=== PATIENT | female | born 1985 ===

== ENCOUNTER 2020-07-28 06:32 | Emergency (ER) | payer MEDICAID, OTHER, SELFPAY ==
--- NOTE | ~2020-07-28 | CT_ITS ---
EXAMINATION: CT ABDOMEN AND PELVIS WITHOUT CONTRAST CLINICAL INFORMATION: Right flank pain. COMPARISON: None TECHNIQUE: Multidetector volumetric imaging was performed from the superior aspect of the liver through the pubic symphysis. Sagittal and coronal reformatted images were obtained on the technologist's workstation. This CT examination was performed using dose optimization techniques as appropriate, variously including the following: *Automated exposure control *Adjustment of mA and/or kV according to patient size (this includes techniques or standardized protocols for targeted exams where dose is matched to indication/reason for exam; i.e. extremities or head) *Use of iterative reconstruction technique DLP: 585 mGy-cm FINDINGS: LUNG BASES: The visualized lung bases are unremarkable. LIVER, GALLBLADDER, AND BILIARY TREE: The liver is normal in size, shape, and attenuation. No focal hepatic lesion or biliary ductal dilatation is present. The gallbladder has been removed. PANCREAS: Unremarkable. SPLEEN: Unremarkable. ADRENAL GLANDS: Unremarkable. KIDNEYS AND URETERS: There are bilateral renal stones. Largest stones measure 3 mm. No hydronephrosis, ureteral dilatation or ureteral stone. BLADDER: Not optimally distended and not well evaluated. GASTROINTESTINAL TRACT: The small and large bowel is unremarkable. The appendix is unremarkable. ABDOMINAL WALL: No significant hernia is appreciated. LYMPH NODES: Normal. VASCULAR: Unremarkable. PELVIC VISCERA: There may be a 2 cm right ovarian cyst. Uterus and adnexa are otherwise unremarkable. OSSEOUS STRUCTURES: Unremarkable. CT/CT abdomen pelvis wo con IMPRESSION: Bilateral renal stones. Question 2 cm right ovarian cyst. Post cholecystectomy.
[2020-07-28 06:43] VITALS: BP 108/67; PULSE 87; RESP 16; TEMP 36.9; O2SAT 98; BMI 26.9
--- NOTE | 2020-07-28 06:51 | ED.GENADULT ---
HPI - General Adult General Chief complaint: General Medical Stated complaint: back/abdominal pain Time Seen by Provider: 07/28/20 06:41 Source: patient Mode of arrival: ambulatory Limitations: no limitations History of Present Illness HPI narrative: Patient comes to the emergency room complaining of right-sided flank pain, started 2 weeks ago. Patient states sometimes she has dysuria, denies hematuria. Patient states that the pain is intermittent, lasting for about 30 minutes at the time, at this time she has no pain but she did have pain earlier this morning prior to arrival. Patient denies fever, no vomiting or diarrhea, no abdominal pain. Patient denies trauma or back injuries. Related Data Previous Rx's Medication Instructions Recorded ibuprofen 600 mg PO TID PRN #14 tab 07/28/20 nitrofurantoin monohyd/m-cryst 100 mg PO Q12H 7 Days #14 cap 07/28/20 [Macrobid] tramadol 50 mg PO Q8H PRN #7 tab 07/28/20 Allergies Allergy/AdvReac Type Severity Reaction Status Date / Time No Known Allergies Allergy Verified 07/28/20 06:49 Review of Systems Review of Systems: Constitutional : No Weight loss, No Fever, No Chills, No Night Sweats, No Fatigue, No Malaise ENT/Mouth : No Hearing loss, No Ear Pain, No Nasal Congestion, No Sinus Pain, No Hoarseness, No sore throat, No Rhinorrhea, No Swallowing Difficulty Eyes: No Eye Pain, No Swelling, No Redness, No Foreign Body, No Discharge, No Vision Changes Cardiovascular : No Chest Pain, No SOB, No Dyspnea on Exertion, No Orthopnea, No Edema, No Palpitations Respiratory : No Cough, No Sputum, No Wheezing, No Smoke Exposure, No Dyspnea Gastrointestinal : No Nausea, No Vomiting, No Diarrhea, No Constipation, No abdominal Pain, No Hematochezia, No Melena Genitourinary : no irregular bleeding, intermittent Dysuria, No Urinary Frequency, No Hematuria, No Urinary Incontinence, No Urgency, No Flank Pain, No Urinary Flow Changes, No Hesitancy, complaining of right-sided flank pain Musculoskeletal : No joint pain, No Myalgias, No Joint Swelling Skin : No Skin Lesions, No rash Neuro : No Weakness, No Numbness, No Paresthesias, No Loss of Consciousness, No Dizziness, No Headache Psych : No Anxiety/Panic, No Depression, No SI/HI/AH/VH, No Social Issues, Heme/Lymph: No Bruising, No Bleeding,No Lymphadenopathy Endocrine : No Polyuria, No Polydipsia, No Temperature Intolerance [facility] Past Medical History Surgical History History of cholecystectomy Social History Social History Advance Directives: No Advance Directives Information Provided: No Patient : No Physical Exam Vital Signs: Vital Signs: Last Vital Signs Temp 98.0 F 07/28/20 08:05 Pulse 70 07/28/20 08:05 Resp 17 07/28/20 08:05 BP 100/63 07/28/20 08:05 Pulse Ox 97 07/28/20 08:05 Body Mass Index 26.9 Appearance: Alert. Oriented X3. No acute distress. Eyes: Pupils equal, round and reactive to light. ENT: Pharynx normal. Neck: Normal inspection. Neck supple. No lymph nodes noted. No crepitus CVS: Normal heart rate and rhythm. Pulses normal. Normal S1 and S2 Respiratory: No respiratory distress. Breath sounds normal. No Wheezing. No rales Abdomen: Soft and nontender. No rigidity. No distention. Back: Mild CVA tenderness on the right side Skin: Skin warm and dry. Normal skin color. Normal skin turgor. Extremities: No lower extremity edema. No lower extremity edema. No Lacerations. No Rash Neuro: Oriented X 3. No motor deficit. No sensory deficit. Moving all extermities. No slurred speech. Course Course Course Narrative: I discussed the labs and imaging with the patient, it is possible that she did pass a renal stone causing her symptoms. At this time, patient feels better, states that she is not nauseous either. Patient agrees with plan, patient being discharged. Medical Decision Making Lab Data Result diagrams: 07/28/20 07:38 07/28/20 07:38 Labs: Lab Results 07/28/20 07/28/20 07/28/20 Range/Units 07:38 07:38 08:16 WBC 7.6 (4.8-10.8) X10*3/uL RBC 3.96 L (4.20-5.50) X10*6/uL Hgb 11.9 L (12.0-16.0) g/dl Hct 35.4 L (37-47) % MCV 89.4 (80-98) fL MCH 30.1 (27.0-33.0) pg MCHC 33.6 (31.0-35.0) g/dl RDW 12.1 (11.0-16.0) % Plt Count 246 (160-400) X10*3/uL MPV 10.5 (9.4-12.3) fL Immature Gran % (Auto) 0.3 (0.0-0.4) % Neut % (Auto) 56.4 (45-73) % Lymph % (Auto) 35.1 (20-40) % [place] % (Auto) 6.7 (2-11) % Eos % (Auto) 1.2 (0-4) % Baso % (Auto) 0.3 (0-2) % Lymph # (Auto) 2.7 (1.2-4.9) X10*3/uL [place] # (Auto) 0.5 (0.1-1.2) X10*3/uL Eos # (Auto) 0.1 (0.0-0.4) X10*3/uL Baso # (Auto) 0.0 (0.0-0.2) X10*3/uL Abs Immat Gran (auto) 0.02 (0.00-0.03) X10*3/uL Absolute Neuts (auto) 4.3 (2.0-8.3) X10*3/uL Absolute Nucleated RBC 0.000 (0.0-0.012) X10*3/uL Nucleated RBC % (auto) 0.0 (0.0-0.2) /100WBC Sodium 139 (135-145) mmol/L Potassium 4.0 (3.3-5.1) mmol/L Chloride 109 H (96-108) mmol/L Carbon Dioxide 23 (22-29) mmol/L Anion Gap 11 L (12-20) BUN 11 (9-16) mg/dL Creatinine 0.66 (0.5-1.4) mg/dL Estim Creat Clear Calc 109.6 Estimated GFR > 60 Random Glucose 88 (60-115) mg/dL Calcium 8.9 (8.4-10.2) mg/dL Total Bilirubin 0.4 (0.0-1.0) mg/dL Direct Bilirubin < 0.2 (0.0-0.5) mg/dL AST 16 (5-31) U/L ALT 14 (0-31) U/L Alkaline Phosphatase 68 (39-117) U/L Total Protein 6.8 (6.5-8.0) g/dL Albumin 3.7 (3.5-5.0) g/dL Urine Color Urine Appearance Urine pH (5.0-8.0) Ur Specific [place] (1.005-1.025) Urine Protein (NEG-TRACE) MG/DL Urine Glucose (UA) (NEG) MG/DL Urine Ketones (NEG) MG/DL Urine Blood (NEG) Urine Nitrite (NEG) Ur Leukocyte Esterase (NEG) Urine RBC (0) /HPF Urine WBC (0-4) /HPF Ur Squamous Epith Cells /LPF Urine Bacteria /LPF Urine Test NEGATIVE (NEGATIVE) Urine Opiates Screen (Not Detect) Ur Barbiturates Screen (Not Detect) Ur Phencyclidine Scrn (Not Detect) Ur Amphetamines Screen (Not Detect) U Benzodiazepines Scrn (Not Detect) Urine Cocaine Screen (Not Detect) U Marijuana (THC) Screen (Not Detect) 07/28/20 07/28/20 Range/Units 08:16 08:16 WBC (4.8-10.8) X10*3/uL RBC (4.20-5.50) X10*6/uL Hgb (12.0-16.0) g/dl Hct (37-47) % MCV (80-98) fL MCH (27.0-33.0) pg MCHC (31.0-35.0) g/dl RDW (11.0-16.0) % Plt Count (160-400) X10*3/uL MPV (9.4-12.3) fL Immature Gran % (Auto) (0.0-0.4) % Neut % (Auto) (45-73) % Lymph % (Auto) (20-40) % [place] % (Auto) (2-11) % Eos % (Auto) (0-4) % Baso % (Auto) (0-2) % Lymph # (Auto) (1.2-4.9) X10*3/uL [place] # (Auto) (0.1-1.2) X10*3/uL Eos # (Auto) (0.0-0.4) X10*3/uL Baso # (Auto) (0.0-0.2) X10*3/uL Abs Immat Gran (auto) (0.00-0.03) X10*3/uL Absolute Neuts (auto) (2.0-8.3) X10*3/uL Absolute Nucleated RBC (0.0-0.012) X10*3/uL Nucleated RBC % (auto) (0.0-0.2) /100WBC Sodium (135-145) mmol/L Potassium (3.3-5.1) mmol/L Chloride (96-108) mmol/L Carbon Dioxide (22-29) mmol/L Anion Gap (12-20) BUN (9-16) mg/dL Creatinine (0.5-1.4) mg/dL Estim Creat Clear Calc Estimated GFR Random Glucose (60-115) mg/dL Calcium (8.4-10.2) mg/dL Total Bilirubin (0.0-1.0) mg/dL Direct Bilirubin (0.0-0.5) mg/dL AST (5-31) U/L ALT (0-31) U/L Alkaline Phosphatase (39-117) U/L Total Protein (6.5-8.0) g/dL Albumin (3.5-5.0) g/dL Urine Color YELLOW Urine Appearance HAZY Urine pH 6.0 (5.0-8.0) Ur Specific [place] 1.025 (1.005-1.025) Urine Protein NEG (NEG-TRACE) MG/DL Urine Glucose (UA) NEG (NEG) MG/DL Urine Ketones NEG (NEG) MG/DL Urine Blood NEG (NEG) Urine Nitrite NEG (NEG) Ur Leukocyte Esterase 2+ H (NEG) Urine RBC 0 (0) /HPF Urine WBC 10-14 H (0-4) /HPF Ur Squamous Epith Cells 1+ /LPF Urine Bacteria 1+ /LPF Urine Test (NEGATIVE) Urine Opiates Screen Not Detected (Not Detect) Ur Barbiturates Screen Not Detected (Not Detect) Ur Phencyclidine Scrn Not Detected (Not Detect) Ur Amphetamines Screen Not Detected (Not Detect) U Benzodiazepines Scrn Not Detected (Not Detect) Urine Cocaine Screen Not Detected (Not Detect) U Marijuana (THC) Screen Not Detected (Not Detect) Imaging Data CT scan - abdomen: Radiologist's impression: FINDINGS: LUNG BASES: The visualized lung bases are unremarkable. LIVER, GALLBLADDER, AND BILIARY TREE: The liver is normal in size, shape, and attenuation. No focal hepatic lesion or biliary ductal dilatation is present. The gallbladder has been removed. PANCREAS: Unremarkable. SPLEEN: Unremarkable. ADRENAL GLANDS: Unremarkable. KIDNEYS AND URETERS: There are bilateral renal stones. Largest stones measure 3 mm. No hydronephrosis, ureteral dilatation or ureteral stone. BLADDER: Not optimally distended and not well evaluated. GASTROINTESTINAL TRACT: The small and large bowel is unremarkable. The appendix is unremarkable. ABDOMINAL WALL: No significant hernia is appreciated. LYMPH NODES: Normal. VASCULAR: Unremarkable. PELVIC VISCERA: There may be a 2 cm right ovarian cyst. Uterus and adnexa are otherwise unremarkable. OSSEOUS STRUCTURES: Unremarkable. CT/CT abdomen pelvis wo con IMPRESSION: Bilateral renal stones. Question 2 cm right ovarian cyst. Post cholecystectomy. Discharge Plan Discharge Clinical Impression: Calcium kidney stone, Flank pain UTI (urinary tract infection) Qualifiers: Urinary tract infection type: site unspecified Hematuria presence: without hematuria Qualified Code(s): N39.0 - Urinary tract infection, site not specified Patient Disposition: Home, Self-Care Instructions: Urinary Tract Infection in Women (ED) Additional Instructions: Please follow-up with your primary care physician tomorrow. If you have any worsening or new symptoms, please return to the emergency room or call 911 Prescriptions: New nitrofurantoin monohyd/m-cryst [Macrobid] 100 mg capsule 100 mg PO Q12H 7 Days Qty: 14 RF: 0 tramadol 50 mg tablet 50 mg PO Q8H PRN (Reason: pain) Qty: 7 RF: 0 ibuprofen 600 mg tablet 600 mg PO TID PRN (Reason: pain) Qty: 14 RF: 0
[2020-07-28 07:42] LABS: MANUAL DIFF FLAG NO
[2020-07-28 07:43] LABS: Basophils Percent Auto 0.3 % (0-2); Eosinophils Absolute Auto 0.1 X10*3/uL (0.0-0.4); Eosinophils Percent Auto 1.2 % (0-4); Hematocrit 35.4 % (37-47); Hemoglobin 11.9 g/dl (12.0-16.0); Imm Gran Abs Auto 0.02 X10*3/uL (0.00-0.03); Imm Gran Pct Auto 0.3 % (0.0-0.4); Lymphocytes Absolute Auto 2.7 X10*3/uL (1.2-4.9); Lymphocytes Percent Auto 35.1 % (20-40); Mean Corpuscular HGB Conc 33.6 g/dl (31.0-35.0); Mean Corpuscular Hemoglobin 30.1 pg (27.0-33.0); Mean Corpuscular Volume 89.4 fL (80-98); Mean Platelet Volume 10.5 fL (9.4-12.3); Monocytes Absolute Auto 0.5 X10*3/uL (0.1-1.2); Monocytes Percent Auto 6.7 % (2-11); Neutrophils Absolute Auto 4.3 X10*3/uL (2.0-8.3); Neutrophils Percent Auto 56.4 % (45-73); Platelet Count 246 X10*3/uL (160-400); Red Blood Count 3.96 X10*6/uL (4.20-5.50); Red Cell Distribution Width 12.1 % (11.0-16.0); White Blood Count 7.6 X10*3/uL (4.8-10.8)
[2020-07-28 08:05] VITALS: BP 100/63; PULSE 70; RESP 17; TEMP 36.7; O2SAT 97
[2020-07-28 08:12] LABS: Alanine Aminotransferase 14 U/L (0-31); Albumin Level 3.7 g/dL (3.5-5.0); Alkaline Phosphatase 68 U/L (39-117); Anion Gap 11 (12-20); Aspartate Amino Transferase 16 U/L (5-31); Bilirubin Direct < 0.2 mg/dL (0.0-0.5); Bilirubin Total 0.4 mg/dL (0.0-1.0); Blood Urea Nitrogen 11 mg/dL (9-16); Calcium 8.9 mg/dL (8.4-10.2); Carbon Dioxide 23 mmol/L (22-29); Chloride 109 mmol/L (96-108); Creatinine Clr Calc Pharmacy 109.6; Estimated Glomerular Filt Rate > 60; Glucose Random 88 mg/dL (60-115); Sodium 139 mmol/L (135-145); Total Protein 6.8 g/dL (6.5-8.0)
[2020-07-28 08:24] LABS: Glucose Urine UA NEG (NEG); Leukocyte Esterase Urine 2+ (NEG); Nitrite Urine NEG (NEG); Specific Gravity - Urine 1.025 (1.005-1.025); UACC Culture Trigger YES; Urine Blood NEG (NEG); Urine Ketones NEG (NEG); Urine Protein NEG (NEG-TRACE)
[2020-07-28 08:25] LABS: Appearance Urine HAZY; Color Urine YELLOW
[2020-07-28 08:31] LABS: UPreg QC Valid YES; Urine Pregnancy NEGATIVE (NEGATIVE)
[2020-07-28 08:37] LABS: Bacteria Urine 1+ /LPF; RBC Urine 0 /HPF (0); Squamous Epithelial Cell Urine 1+ /LPF
[2020-07-28 08:55] LABS: Amphetamine Screen Urine Not Detected (Not Detect); Barbiturates, Urine Not Detected (Not Detect); Benzodiazepines Screen Urine Not Detected (Not Detect); Cannabinoid Screen Urine Not Detected (Not Detect); Cocaine Screen Urine Not Detected (Not Detect); Opiate Screen Urine Not Detected (Not Detect); Phencyclidine Screen Urine Not Detected (Not Detect)
[2020-07-28 10:17] VITALS: BP 97/63; PULSE 80; RESP 17; TEMP 36.9; O2SAT 97
== END 2020-07-28 10:35 | disposition home or self-care (01) ==
PROVIDERS: Emergency Provider Emergency Medicine
DX: N39.0 Urinary tract infection, site not specified (principal); N20.0 Calculus of kidney
CPT/HCPCS: 36415; 74176; 80048; 80076; 80307; 81001; 81003; 81025; 85025; 87086; 99283; 99284

== ENCOUNTER 2021-04-24 15:08 | Outpatient (REF) | payer MEDICAID, OTHER, SELFPAY ==
--- NOTE | ~2021-04-24 | US_ITS ---
EXAMINATION: US PELVIS CLINICAL INFORMATION: Dyspareunia COMPARISON: CT abdomen pelvis 07/28/2020 TECHNIQUE: Ultrasound of the pelvis is performed using both transabdominal and transvaginal transducers along with Doppler. Transvaginal imaging is performed due to inadequate visualization transabdominally. FINDINGS: Uterus: The uterus is anteverted and measures 8.4 x 4.1 x 5.2 cm. Nabothian cysts are present in the cervix. The double wall endometrial thickness is 0.8 mm. The uterus is smooth in contour and has normal myometrial echogenicity. No visible fibroid. Adnexa: Both ovaries are visualized. There is normal color flow to the adnexa. Trace simple free fluid in the pelvis within physiologic limits of volume. Right ovary measures 2.8 x 1.0 x 2.2 cm. Right ovary is unremarkable. Left ovary measures 2.6 x 1.8 x 2.1 cm. Left ovary is remarkable for a physiologic involuting hemorrhagic corpus luteum. US/US pelvic and transvaginal IMPRESSION: Unremarkable pelvic ultrasound.
== END 2021-04-24 15:09 | disposition home or self-care (01) ==
LOC: HO.US 15:08
PROVIDERS: Visit Provider Advanced Practice Midwife
DX: N94.10 Unspecified dyspareunia (principal)
CPT/HCPCS: 76830; 76856

== ENCOUNTER 2022-08-09 03:02 | Emergency (ER) | payer MEDICAID, OTHER, SELFPAY ==
--- NOTE | ~2022-08-09 | CT_ITS ---
EXAMINATION: CT ABDOMEN AND PELVIS WITHOUT CONTRAST CLINICAL INFORMATION: Left flank pain COMPARISON: 07/28/2020 TECHNIQUE: Multidetector volumetric imaging was performed from the superior aspect of the liver through the pubic symphysis. Sagittal and coronal reformatted images were obtained on the technologist's workstation. This CT examination was performed using dose optimization techniques as appropriate, variously including the following: *Automated exposure control *Adjustment of mA and/or kV according to patient size (this includes techniques or standardized protocols for targeted exams where dose is matched to indication/reason for exam; i.e. extremities or head) *Use of iterative reconstruction technique DLP: 525 mGy-cm FINDINGS: LUNG BASES: The visualized lung bases are unremarkable. LIVER, GALLBLADDER, AND BILIARY TREE: The liver is normal in size, shape, and attenuation. No focal hepatic lesion or biliary ductal dilatation is identified on this noncontrast exam. Patient is status post cholecystectomy. PANCREAS: Unremarkable. SPLEEN: Unremarkable. ADRENAL GLANDS: Unremarkable. KIDNEYS AND URETERS: No hydronephrosis or obstructing calculus bilaterally. There are several scattered calculi within each kidney measuring up to 4 mm in size. BLADDER: Partially distended without wall thickening. There is a dependent 3 mm calculus in the bladder, suspicious for a recently passed stone. GASTROINTESTINAL TRACT: No evidence of bowel obstruction or significant wall thickening. The appendix is unremarkable. No free air is seen. ABDOMINAL WALL: No significant hernia is appreciated. LYMPH NODES: Normal. VASCULAR: Unremarkable. PELVIC VISCERA: Unremarkable. Trace nonspecific pelvic free fluid. OSSEOUS STRUCTURES: Unremarkable. CT/CT abdomen pelvis wo IV con IMPRESSION: 1. Dependent 3 mm calculus in the bladder, suspicious for a recently passed stone. No hydronephrosis. 2. Several scattered bilateral renal calculi. 3. Trace nonspecific pelvic free fluid, which may be physiologic.
[2022-08-09 03:05] VITALS: BP 113/75; PULSE 83; RESP 20; TEMP 36.3; O2SAT 99; BMI 25.7
--- NOTE | 2022-08-09 03:34 | ED_ITS ---
HPI - Female Genitourinary General Chief complaint: Urogenital-Female Stated complaint: Flank pain Time Seen by Provider: 08/09/22 03:27 Source: patient Mode of arrival: ambulatory Limitations: no limitations History of Present Illness HPI Narrative: Patient comes to the emergency room complaining of 2 hours of severe left-sided flank pain. Patient states that since yesterday she has noted that she has pain with urination. Patient denies fever chills. Patient has never passed kidney stones to her knowledge. Patient had a CT scan done couple of years ago, she had stones in the kidneys but never ureterolithiasis. Patient complaining of nausea, no vomiting or diarrhea. No fever chills, no abdominal pain. Related Data Previous Rx's Medication Instructions Recorded ibuprofen 600 mg tablet 600 mg PO TID PRN pain #14 tabs 07/28/20 nitrofurantoin 100 mg PO Q12H 7 days #14 caps 07/28/20 monohydrate/macrocrystals 100 mg capsule (Macrobid) tramadol 50 mg tablet 50 mg PO Q8H PRN pain #7 tabs 07/28/20 ketorolac 10 mg tablet 10 mg PO TID PRN pain #10 tabs 08/09/22 levofloxacin 500 mg tablet 500 mg PO DAILY #10 tabs 08/09/22 tamsulosin 0.4 mg capsule (Flomax) 0.4 mg PO BEDTIME #10 caps 08/09/22 Allergies Allergy/AdvReac Type Severity Reaction Status Date / Time No Known Allergies Allergy Verified 07/28/20 06:49 Review of Systems Review of Systems: Constitutional : No Weight loss, No Fever, No Chills, No Night Sweats, No Fatigue, No Malaise ENT/Mouth : No Hearing loss, No Ear Pain, No Nasal Congestion, No Sinus Pain, No Hoarseness, No sore throat, No Rhinorrhea, No Swallowing Difficulty Eyes: No Eye Pain, No Swelling, No Redness, No Foreign Body, No Discharge, No Vision Changes Cardiovascular : No Chest Pain, No SOB, No Dyspnea on Exertion, No Orthopnea, No Edema, No Palpitations Respiratory : No Cough, No Sputum, No Wheezing, No Smoke Exposure, No Dyspnea Gastrointestinal : No Nausea, No Vomiting, No Diarrhea, No Constipation, No abdominal Pain, No Hematochezia, No Melena Genitourinary : no irregular bleeding, complaining of Dysuria, No Urinary Frequency, No Hematuria, No Urinary Incontinence, No Urgency, complaining of left-sided Flank Pain, No Urinary Flow Changes, No Hesitancy Musculoskeletal : No joint pain, No Myalgias, No Joint Swelling Skin : No Skin Lesions, No rash Neuro : No Weakness, No Numbness, No Paresthesias, No Loss of Consciousness, No Dizziness, No Headache Psych : No Anxiety/Panic, No Depression, No SI/HI/AH/VH, No Social Issues, Heme/Lymph: No Bruising, No Bleeding,No Lymphadenopathy Endocrine : No Polyuria, No Polydipsia, No Temperature Intolerance [facility] Past Medical History Surgical History History of cholecystectomy Social History Social History Smoked in Last 30 Days: No Use of substances other than those prescribed or required for medical reasons: No Advance Directives: No Advance Directives Information Provided: No Patient : No Physical Exam Vital Signs: Vital Signs: Last Vital Signs Temp 97.3 F 08/09/22 03:05 Pulse 83 08/09/22 03:05 Resp 20 08/09/22 03:05 BP 113/75 08/09/22 03:05 Pulse Ox 99 08/09/22 03:05 O2 Del Method Room Air 08/09/22 03:05 BMI result Body Mass Index 25.7 Const: Other: Appearance: Alert. Oriented X3. Seems uncomfortable Eyes: Pupils equal, round and reactive to light. ENT: Pharynx normal. Neck: Normal inspection. Neck supple. No lymph nodes noted. No crepitus CVS: Normal heart rate and rhythm. Pulses normal. Normal S1 and S2 Respiratory: No respiratory distress. Breath sounds normal. No Wheezing. No rales Abdomen: Soft and nontender. No rigidity. No distention. Positive CVA tenderness on the left Skin: Skin warm and dry. Normal skin color. Normal skin turgor. Extremities: No lower extremity edema. No Lacerations. No Rash Neuro: Oriented X 3. No motor deficit. No sensory deficit. Moving all extremities. No slurred speech. CN 2 through 12 grossly intact Psych: calm, cooperative, normal affect Course Course Course Narrative: It is possible that patient is passing kidney stones or has pyelonephritis. Since it is unilateral, more likely causes kidney stones. -patient has no fever, normal blood pressure, normal temperature, sepsis not suspected. -All labs pending -CT scan of abdomen pelvis pending Medications Administered Discontinued Medications Generic Name Dose Route Start Last Admin Trade Name Michael PRN Reason Stop Dose Admin Ketorolac Tromethamine 30 mg 08/09/22 03:33 08/09/22 03:44 Ketorolac Tromethamine 30 Mg/Ml Vial IVPUSH 08/09/22 03:34 30 mg ONCE ONE Administration Medical Decision Making Medical Decision Making [facility] Narrative: -my interpretation of urinalysis: Positive for UTI -interpretation of CT scan of abdomen and pelvis: There is a stone present in the bladder -patient has an infected kidney stone. I am considering to admit the patient. -patient feeling much better, no fever or chills, vitals stable. Pain is well c ontrolled -patient was given the 1st dose of levofloxacin in the emergency room. -patient will be going home, she was instructed to follow-up with urology. Differential Diagnosis Differential Diagnoses: The differential diagnosis associated with the presentation includes (Renal colic, renal infarct, ureterolithiasis, pyelonephritis, UTI) Admission/Observation Consideration of admission/observation: Escalation of care including admission/observation considered Lab Data [facility] Lab Attestation statement: I reviewed the patient's lab results. 08/09/22 03:40 08/09/22 03:40 Labs: Lab Results 08/09/22 08/09/22 08/09/22 Range/Units 03:40 03:40 03:40 WBC 11.9 H (4.8-10.8) X10*3/uL RBC 4.27 (4.20-5.50) X10*6/uL Hgb 12.8 (12.0-16.0) g/dl Hct 37.8 (37.0-47.0) % MCV 88.5 (80.0-98.0) fL MCH 30.0 (27.0-33.0) pg MCHC 33.9 (31.0-35.0) g/dl RDW 12.1 (11.0-16.0) % Plt Count 263 (160-400) X10*3/uL MPV 10.2 (9.4-12.3) fL Immature Gran % (Auto) 0.3 (0.0-0.4) % Neut % (Auto) 57.7 (45-73) % Lymph % (Auto) 34.2 (20-40) % [place] % (Auto) 6.7 (2-11) % Eos % (Auto) 0.8 (0-4) % Baso % (Auto) 0.3 (0-2) % Lymph # (Auto) 4.1 (1.2-4.9) X10*3/uL [place] # (Auto) 0.8 (0.1-1.2) X10*3/uL Eos # (Auto) 0.1 (0.0-0.4) X10*3/uL Baso # (Auto) 0.0 (0.0-0.2) X10*3/uL Abs Immat Gran (auto) 0.03 (0.00-0.03) X10*3/uL Absolute Neuts (auto) 6.9 (2.0-8.3) x10*3/uL Absolute Nucleated RBC 0.000 (0.0-0.012) X10*3/uL Nucleated RBC % (auto) 0.0 (0.0-0.2) /100WBC Sodium 139 (135-145) mmol/L Potassium 3.6 (3.3-5.1) mmol/L Chloride 107 (96-108) mmol/L Carbon Dioxide 23 (22-29) mmol/L Anion Gap 13 (12-20) BUN 11 (9-16) mg/dL Creatinine 0.60 (0.5-1.4) mg/dL Estim Creat Clear Calc 120.4 Estimated GFR > 60 Random Glucose 97 (60-115) mg/dL Calcium 9.3 (8.4-10.2) mg/dL Total Bilirubin 0.6 (0.0-1.0) mg/dL AST 14 (5-31) U/L ALT 11 (0-31) U/L Alkaline Phosphatase 87 (39-117) U/L Total Protein 7.5 (6.5-8.0) g/dL Albumin 3.9 (3.5-5.0) g/dL Beta HCG, Quant < 2 mIU/mL Urine Color Urine Appearance Urine pH (5.0-9.0) Ur Specific [place] (1.005-1.025) Urine Protein (Neg-Trace) mg/dL Urine Glucose (UA) (Negative) mg/dL Urine Ketones (Negative) mg/dL Urine Blood (Negative) Urine Nitrite (Negative) Ur Leukocyte Esterase (Negative) Urine RBC (0-2) /HPF Urine WBC (0-5) /HPF Ur Squamous Epith Cells (0-2) /HPF Urine Bacteria (None Seen) Hyaline Casts (0-2) /LPF 08/09/22 Range/Units 03:40 WBC (4.8-10.8) X10*3/uL RBC (4.20-5.50) X10*6/uL Hgb (12.0-16.0) g/dl Hct (37.0-47.0) % MCV (80.0-98.0) fL MCH (27.0-33.0) pg MCHC (31.0-35.0) g/dl RDW (11.0-16.0) % Plt Count (160-400) X10*3/uL MPV (9.4-12.3) fL Immature Gran % (Auto) (0.0-0.4) % Neut % (Auto) (45-73) % Lymph % (Auto) (20-40) % [place] % (Auto) (2-11) % Eos % (Auto) (0-4) % Baso % (Auto) (0-2) % Lymph # (Auto) (1.2-4.9) X10*3/uL [place] # (Auto) (0.1-1.2) X10*3/uL Eos # (Auto) (0.0-0.4) X10*3/uL Baso # (Auto) (0.0-0.2) X10*3/uL Abs Immat Gran (auto) (0.00-0.03) X10*3/uL Absolute Neuts (auto) (2.0-8.3) x10*3/uL Absolute Nucleated RBC (0.0-0.012) X10*3/uL Nucleated RBC % (auto) (0.0-0.2) /100WBC Sodium (135-145) mmol/L Potassium (3.3-5.1) mmol/L Chloride (96-108) mmol/L Carbon Dioxide (22-29) mmol/L Anion Gap (12-20) BUN (9-16) mg/dL Creatinine (0.5-1.4) mg/dL Estim Creat Clear Calc Estimated GFR Random Glucose (60-115) mg/dL Calcium (8.4-10.2) mg/dL Total Bilirubin (0.0-1.0) mg/dL AST (5-31) U/L ALT (0-31) U/L Alkaline Phosphatase (39-117) U/L Total Protein (6.5-8.0) g/dL Albumin (3.5-5.0) g/dL Beta HCG, Quant mIU/mL Urine Color Yellow Urine Appearance Clear Urine pH 6.0 (5.0-9.0) Ur Specific [place] 1.015 (1.005-1.025) Urine Protein Negative (Neg-Trace) mg/dL Urine Glucose (UA) Negative (Negative) mg/dL Urine Ketones Negative (Negative) mg/dL Urine Blood Small (1+) H (Negative) Urine Nitrite Negative (Negative) Ur Leukocyte Esterase Trace H (Negative) Urine RBC 11-20 H (0-2) /HPF Urine WBC 0-5 (0-5) /HPF Ur Squamous Epith Cells 3-5 (0-2) /HPF Urine Bacteria None Seen (None Seen) Hyaline Casts 0-2 (0-2) /LPF Radiology Impression Discussion of test interpretation with radiology: I have reviewed the radiologist's reading. Radiologist Impression: FINDINGS: LUNG BASES: The visualized lung bases are unremarkable.? LIVER, GALLBLADDER, AND BILIARY TREE: The liver is normal in size, shape, and attenuation. No focal hepatic lesion or biliary ductal dilatation is identified on this noncontrast exam. Patient is status post cholecystectomy. PANCREAS: Unremarkable.? SPLEEN: Unremarkable.? ADRENAL GLANDS: Unremarkable.? KIDNEYS AND URETERS: No hydronephrosis or obstructing calculus bilaterally. There are several scattered calculi within each kidney measuring up to 4 mm in size. BLADDER: Partially distended without wall thickening. There is a dependent 3 mm calculus in the bladder, suspicious for a recently passed stone. GASTROINTESTINAL TRACT: No evidence of bowel obstruction or significant wall thickening. The appendix is unremarkable. No free air is seen.? ABDOMINAL WALL: No significant hernia is appreciated.? LYMPH NODES: Normal. VASCULAR: Unremarkable. PELVIC VISCERA: Unremarkable. Trace nonspecific pelvic free fluid. OSSEOUS STRUCTURES: Unremarkable.? CT/CT abdomen pelvis wo IV con IMPRESSION: 1.? Dependent 3 mm calculus in the bladder, suspicious for a recently passed stone. No hydronephrosis. 2.? Several scattered bilateral renal calculi. 3.? Trace nonspecific pelvic free fluid, which may be physiologic. ? Prescription Management I considered prescription management with: Pain Medication (I consider prescribing narcotics. However, patient had good results with ketorolac) Discharge Plan Discharge Clinical Impression: Urinary tract infection, Kidney stone Patient Disposition: Home, Self-Care Instructions: Kidney Stones (ED), Urinary Tract Infection in Women (ED) Additional Instructions: Please follow-up with your primary care physician tomorrow. If you have any worsening or new symptoms, please return to the emergency room or call 911 Prescriptions: New levofloxacin 500 mg tablet 500 mg PO DAILY Qty: 10 0RF ketorolac 10 mg tablet 10 mg PO TID PRN (Reason: pain) Qty: 10 0RF Rx Instructions: Do not use with aleve, ibuprofen, only Tylenol if needed tamsulosin [Flomax] 0.4 mg capsule 0.4 mg PO BEDTIME Qty: 10 0RF No Action nitrofurantoin monohyd/m-cryst [Macrobid] 100 mg capsule 100 mg PO Q12H 7 Days Qty: 14 0RF Rx Instructions: must administer with a meal/food tramadol 50 mg tablet 50 mg PO Q8H PRN (Reason: pain) Qty: 7 0RF ibuprofen 600 mg tablet 600 mg PO TID PRN (Reason: pain) Qty: 14 0RF Referrals: Petey Juarez MD [Physician] - 08/16/22
[2022-08-09] MEDS: Ketorolac Tromethamine 30 MG/ML VIAL IVPUSH (03:44)
[2022-08-09 03:46] LABS: Basophils Percent Auto 0.3 % (0-2); Eosinophils Absolute Auto 0.1 X10*3/uL (0.0-0.4); Eosinophils Percent Auto 0.8 % (0-4); Hematocrit 37.8 % (37.0-47.0); Hemoglobin 12.8 g/dl (12.0-16.0); Imm Gran Abs Auto 0.03 X10*3/uL (0.00-0.03); Imm Gran Pct Auto 0.3 % (0.0-0.4); Lymphocytes Absolute Auto 4.1 X10*3/uL (1.2-4.9); Lymphocytes Percent Auto 34.2 % (20-40); MANUAL DIFF FLAG NO; Mean Corpuscular HGB Conc 33.9 g/dl (31.0-35.0); Mean Corpuscular Volume 88.5 fL (80.0-98.0); Mean Platelet Volume 10.2 fL (9.4-12.3); Monocytes Absolute Auto 0.8 X10*3/uL (0.1-1.2); Monocytes Percent Auto 6.7 % (2-11); Neutrophils Absolute Auto 6.9 x10*3/uL (2.0-8.3); Neutrophils Percent Auto 57.7 % (45-73); Platelet Count 263 X10*3/uL (160-400); Red Blood Count 4.27 X10*6/uL (4.20-5.50); Red Cell Distribution Width 12.1 % (11.0-16.0); White Blood Count 11.9 X10*3/uL (4.8-10.8)
[2022-08-09 03:48] LABS: Appearance Urine Clear; Color Urine Yellow; Glucose Urine UA Negative (Negative); Leukocyte Esterase Urine Trace (Negative); Nitrite Urine Negative (Negative); Specific Gravity - Urine 1.015 (1.005-1.025); UMIC TRIGGER UACC YES; Urine Blood Small (1+) (Negative); Urine Ketones Negative (Negative); Urine Protein Negative (Neg-Trace)
[2022-08-09 03:53] LABS: Bacteria Urine None Seen (None Seen); Hyaline Casts Urine 0-2 /LPF (0-2); WBC Urine 0-5 /HPF (0-5)
[2022-08-09 04:03] LABS: Alanine Aminotransferase 11 U/L (0-31); Albumin Level 3.9 g/dL (3.5-5.0); Alkaline Phosphatase 87 U/L (39-117); Anion Gap 13 (12-20); Aspartate Amino Transferase 14 U/L (5-31); Bilirubin Total 0.6 mg/dL (0.0-1.0); Blood Urea Nitrogen 11 mg/dL (9-16); Calcium 9.3 mg/dL (8.4-10.2); Carbon Dioxide 23 mmol/L (22-29); Chloride 107 mmol/L (96-108); Creatinine Clr Calc Pharmacy 120.4; Estimated Glomerular Filt Rate > 60; Glucose Random 97 mg/dL (60-115); Potassium 3.6 mmol/L (3.3-5.1); Sodium 139 mmol/L (135-145); Total Protein 7.5 g/dL (6.5-8.0)
[2022-08-09 04:10] LABS: HCG Quantitative < 2 mIU/mL
[2022-08-09 05:31] VITALS: BP 99/59; PULSE 68; RESP 12; TEMP 36.5; O2SAT 97
[2022-08-09] MEDS: levoFLOXacin 500 MG TABLET PO (05:32)
== END 2022-08-09 05:36 | disposition home or self-care (01) ==
PROVIDERS: Emergency Provider Emergency Medicine
DX: N39.0 Urinary tract infection, site not specified (principal); N20.0 Calculus of kidney
CPT/HCPCS: 36415; 74176; 80053; 81001; 84702; 85025; 96374; 99284; 99285; J1885

== ENCOUNTER 2022-09-24 16:18 | Outpatient (REF) | payer MEDICAID, OTHER, SELFPAY ==
[2022-09-24 17:22] LABS: MANUAL DIFF FLAG NO
[2022-09-24 17:29] LABS: Basophils Percent Auto 0.4 % (0-2); Eosinophils Absolute Auto 0.2 X10*3/uL (0.0-0.4); Eosinophils Percent Auto 1.9 % (0-4); Hematocrit 38.8 % (37.0-47.0); Hemoglobin 12.9 g/dl (12.0-16.0); Imm Gran Abs Auto 0.03 X10*3/uL (0.00-0.03); Imm Gran Pct Auto 0.3 % (0.0-0.4); Lymphocytes Absolute Auto 3.2 X10*3/uL (1.2-4.9); Lymphocytes Percent Auto 35.9 % (20-40); Mean Corpuscular HGB Conc 33.2 g/dl (31.0-35.0); Mean Corpuscular Hemoglobin 30.1 pg (27.0-33.0); Mean Corpuscular Volume 90.4 fL (80.0-98.0); Mean Platelet Volume 10.5 fL (9.4-12.3); Monocytes Absolute Auto 0.6 X10*3/uL (0.1-1.2); Monocytes Percent Auto 6.5 % (2-11); Neutrophils Absolute Auto 4.9 x10*3/uL (2.0-8.3); Platelet Count 264 X10*3/uL (160-400); Red Blood Count 4.29 X10*6/uL (4.20-5.50); Red Cell Distribution Width 12.2 % (11.0-16.0); White Blood Count 8.9 X10*3/uL (4.8-10.8)
[2022-09-24 18:13] LABS: TSH reflex Free T4 0.84 uIU/mL (0.32-4.0)
[2022-09-24 18:18] LABS: Vitamin B12 455 pg/mL (200-900)
== END 2022-09-24 16:19 | disposition home or self-care (01) ==
LOC: HO.HHCL 16:18
PROVIDERS: Visit Provider Nurse Practitioner Primary Care
DX: R20.0 Anesthesia of skin (principal); R20.2 Paresthesia of skin
CPT/HCPCS: 36415; 82607; 84443; 85025

== ENCOUNTER 2022-09-26 08:34 | Outpatient (REF) | payer MEDICAID, OTHER, SELFPAY ==
--- NOTE | ~2022-09-26 | XR_ITS ---
EXAMINATION: XR cervical spine 3V CLINICAL INFORMATION: Pain COMPARISON: None TECHNIQUE: 3 views of the cervical spine were obtained. FINDINGS: The cervical spine is visualized to the level of C7-T1 on the lateral view. Vertebral body alignment is maintained. Vertebral body heights are maintained. Disc space heights are maintained. Lateral masses of C1 are well aligned on C2.. The dens is largely obscured by patient positioning. No prevertebral soft tissue swelling. XR/XR cervical spine 3V IMPRESSION: The dens is largely obscured by patient positioning. Otherwise, unremarkable cervical spine radiographs.
== END 2022-09-26 08:35 | disposition home or self-care (01) ==
LOC: HO.HHCX 08:34
PROVIDERS: Visit Provider Nurse Practitioner Primary Care
DX: M54.2 Cervicalgia (principal); G89.29 Other chronic pain
CPT/HCPCS: 72040

== ENCOUNTER 2023-05-01 09:25 | Outpatient (REF) | payer MEDICAID, OTHER, SELFPAY ==
--- NOTE | ~2023-05-01 | US_ITS ---
EXAMINATION: US RETROPERITONEAL COMPLETE (RENAL) CLINICAL INFORMATION: Renal calculus. COMPARISON: CT abdomen and pelvis 08/09/2022. TECHNIQUE: Real-time imaging of the kidneys and bladder. FINDINGS: RIGHT KIDNEY: 11.4 x 5.3 x 5.5 cm (SAG x AP x TRV). The kidney is normal in size, contour, and echogenicity. Renal cortical thickness is normal. No focal parenchymal lesions or hydronephrosis. At the interpolar aspect, 4 mm and 3 mm nonobstructing calculi are seen, with twinkle artifact. At the lower pole, a 3 mm nonobstructing calculus is seen, with twinkle artifact. LEFT KIDNEY: 10.7 x 6.0 x 4.8 cm (SAG x AP x TRV). The kidney is normal in size, contour, and echogenicity. Renal cortical thickness is normal. No focal parenchymal lesions or hydronephrosis. At the interpolar aspect, a 3 mm nonobstructing calculus is seen, with twinkle artifact. At the lower pole, a 3 mm nonobstructing calculus is seen, with twinkle artifact. BLADDER: Well distended and normal. Bilateral ureteral jets are demonstrated. Prevoid bladder volume is 474 mL. Postvoid bladder volume is 17 mL. US/US retroperitoneal comp IMPRESSION: There are nonobstructing bilateral renal calculi. No hydronephrosis is seen. No solid lesion or complex cyst is noted.
== END 2023-05-01 09:26 | disposition home or self-care (01) ==
LOC: HO.US 09:25
PROVIDERS: PCP Nurse Practitioner Primary Care; Visit Provider Urology
DX: N20.0 Calculus of kidney (principal)
CPT/HCPCS: 76770

== ENCOUNTER 2023-06-09 14:57 | Emergency (ER) | payer MEDICAID, OTHER, SELFPAY ==
--- NOTE | 2023-06-09 15:15 | ED_ITS ---
[facility] - General Adult General Chief complaint: Abdominal Pain Stated complaint: Lower abd pain Time Seen by Provider: 06/09/23 20:02 Source: patient Mode of arrival: ambulatory History of Present Illness HPI narrative: 37-year-old female with presentation for 3 weeks of bilateral pelvic discomfort without urinary symptoms and no fever, chills, nausea, vomiting. Patient also has complaints about right thumb discomfort and states that approximately 3 years ago she had a small piece of glass that went into the palmar aspect of her right thumb and she was able to successfully remove it but now states that it hurts when she flexes her thumb. Related Data Previous Rx's ?Medication ?Instructions ?Recorded ibuprofen 600 mg tablet 600 mg PO TID PRN pain #14 tabs 07/28/20 nitrofurantoin 100 mg PO Q12H 7 days #14 caps 07/28/20 monohydrate/macrocrystals 100 mg capsule (Macrobid) tramadol 50 mg tablet 50 mg PO Q8H PRN pain #7 tabs 07/28/20 ketorolac 10 mg tablet 10 mg PO TID PRN pain #10 tabs 08/09/22 levofloxacin 500 mg tablet 500 mg PO DAILY #10 tabs 08/09/22 tamsulosin 0.4 mg capsule (Flomax) 0.4 mg PO BEDTIME #10 caps 08/09/22 Allergies Allergy/AdvReac Type Severity Reaction Status Date / Time No Known Allergies Allergy Verified 06/09/23 15:21 Review of Systems 2 Review of Systems: Pertinent positives and negatives as stated in [facility] Past Medical History Source: nursing notes reviewed Surgical History History of cholecystectomy Social History Social History Smoked in Last 30 Days: No Use of substances other than those prescribed or required for medical reasons: No Advance Directives: No Advance Directives Information Provided: No Do you have a plan to hurt others: No Plan Patient : No Physical Exam ED Vital Signs: Vital Signs - 24 hr 06/09/23 15:16 06/09/23 19:49 Temperature 97.2 F 98.2 F Pulse Rate 84 66 Respiratory Rate 16 16 Blood Pressure 118/74 114/64 Pulse Oximetry 98 98 Oxygen Delivery Method Room Air Room Air BMI result Body Mass Index 26.2 VITAL SIGNS: Reviewed. GENERAL: Well developed, well nourished, in no acute distress. HEAD: Normocephalic/atraumatic EYES: PERRLA, EOMI EARS: Ext canals without abnormality NOSE: Nares patent bilateral OROPHARYNX: no oral lesions noted, posterior pharynx clear NECK: Supple, no adenopathy LUNGS: Normal breath sounds. No adventitious sounds or accessory muscle use. SpO2<98> CARDIOVASCULAR: Regular rate and rhythm without noted murmurs ABDOMEN: Soft, non-tender, non-distended with bowel sounds. MUSCULOSKELETAL: No tenderness, deformities, or effusions noted on gross inspection. EXTREMITIES: No cyanosis, clubbing or edema. RIGHT THUMB: Full range of motion noted, on palpation no foreign body appreciated, sensation is completely intact with good capillary refill, no erythema or induration. SKIN: Inspection of the skin reveals no rashes NEUROLOGIC: Alert and oriented x 4. Strength and sensation to light touch were grossly intact x 4. Course Course Course Narrative: This is an RME: Additional HPI, ROS, PE not included below will be deferred to primary provider. 37 yo f presents with left lower quadrant pain for 3 weeks. States painful urination in the morning. Pt reports more painful periods recently. Denies cp, sob, nausea, vomiting, diarrhea. Medical Decision Making Medical Decision Making [facility] Narrative: 37-year-old female with history and clinical presentation, history sounds as though patient is drawing a correlation between placement of Nexplanon and irregularity of her periods with variability of flow as well as pelvic discomfort. Will rule out possibility of /urinary tract infection but have no clinical suspicion for torsion or other intra-abdominal infections. I reviewed all investigations and hematologic indices are negative for leukocytosis/left shift/anemia/thrombocytopenia. Chemistry indices are negative for GRAYSON/electrolyte or liver enzyme derangements. Urinalysis is negative for UTI or hematuria. Patient received combination analgesics and was otherwise discharged home, my interpretation is patient may be experiencing hormone related symptoms after having Nexplanon placed, I do not find any abnormalities of the right thumb but patient is insistent on getting her thumb further evaluated. Differential Diagnosis Differential Diagnoses: The differential diagnosis associated with the presentation includes Please see the discussion above Admission/Observation Consideration of admission/observation: Escalation of care including admission/observation considered Please see the discussion above Lab Data [facility] Lab Attestation statement: I reviewed the patient's lab results. Please see the discussion above 06/09/23 16:38 06/09/23 16:38 Labs: Lab Results 06/09/23 06/09/23 Range/Units 16:38 16:58 WBC 9.4 (4.8-10.8) X10*3/uL RBC 4.17 L (4.20-5.50) X10*6/uL Hgb 12.6 (12.0-16.0) g/dl Hct 37.2 (37.0-47.0) % MCV 89.2 (80.0-98.0) fL MCH 30.2 (27.0-33.0) pg MCHC 33.9 (31.0-35.0) g/dl RDW 12.1 (11.0-16.0) % Plt Count 244 (160-400) X10*3/uL MPV 10.8 (9.4-12.3) fL Immature Gran % (Auto) 0.4 (0.0-0.4) % Neut % (Auto) 59.8 (45-73) % Lymph % (Auto) 31.9 (20-40) % [place] % (Auto) 6.3 (2-11) % Eos % (Auto) 1.2 (0-4) % Baso % (Auto) 0.4 (0-2) % Lymph # (Auto) 3.0 (1.2-4.9) X10*3/uL [place] # (Auto) 0.6 (0.1-1.2) X10*3/uL Eos # (Auto) 0.1 (0.0-0.4) X10*3/uL Baso # (Auto) 0.0 (0.0-0.2) X10*3/uL Abs Immat Gran (auto) 0.04 H (0.00-0.03) X10*3/uL Absolute Neuts (auto) 5.6 (2.0-8.3) x10*3/uL Absolute Nucleated RBC 0.000 (0.0-0.012) X10*3/uL Nucleated RBC % (auto) 0.0 (0.0-0.2) /100WBC Sodium 138 (135-145) mmol/L Potassium 4.3 (3.3-5.1) mmol/L Chloride 108 (96-108) mmol/L Carbon Dioxide 24 (22-29) mmol/L Anion Gap 10 L (12-20) BUN 10 (9-16) mg/dL Creatinine 0.68 (0.5-1.4) mg/dL Estim Creat Clear Calc 107.4 Estimated GFR > 60 Random Glucose 100 (60-115) mg/dL Calcium 8.7 D (8.4-10.2) mg/dL Magnesium 1.8 (1.6-2.6) mg/dL Total Bilirubin 0.3 (0.0-1.0) mg/dL AST 16 (5-31) U/L ALT 11 (0-31) U/L Alkaline Phosphatase 89 (39-117) U/L Total Protein 7.4 (6.5-8.0) g/dL Albumin 3.7 (3.5-5.0) g/dL Lipase 31 (8-78) U/L Urine Color Yellow Urine Appearance Clear Urine pH 5.5 (5.0-9.0) Ur Specific [place] 1.020 (1.005-1.025) Urine Protein Negative (Neg-Trace) mg/dL Urine Glucose (UA) Negative (Negative) mg/dL Urine Ketones Negative (Negative) mg/dL Urine Blood Negative (Negative) Urine Nitrite Negative (Negative) Ur Leukocyte Esterase Negative (Negative) Urine Test NEGATIVE (NEGATIVE) External Record Review External record reviewed: Outpatient record, Prior outpatient labs and Prior outpatient radiology Critical Care Time Critical Care Time Critical Care Time: Yes Total Critical Care Time: 45 Attestation: I personally attest to this time spent taking care of the patient. Discharge Plan Discharge Clinical Impression: Pelvic pain, Pain of right thumb Patient Disposition: Home, Self-Care Instructions: Pelvic Pain (ED) Additional Instructions: I recommend [id number] Tylenol/ibuprofen as needed for discomfort, please call the office of the senior electronics design engineer tomorrow and set up an appointment for re- evaluation and further discussion regarding the removal of your Nexplanon. In addition a referral for hand surgery has been provided for further evaluation of your right thumb. Prescriptions: No Action nitrofurantoin monohyd/m-cryst [Macrobid] 100 mg capsule 100 mg PO Q12H 7 Days Qty: 14 0RF Rx Instructions: must administer with a meal/food tramadol 50 mg tablet 50 mg PO Q8H PRN (Reason: pain) Qty: 7 0RF ibuprofen 600 mg tablet 600 mg PO TID PRN (Reason: pain) Qty: 14 0RF levofloxacin 500 mg tablet 500 mg PO DAILY Qty: 10 0RF ketorolac 10 mg tablet 10 mg PO TID PRN (Reason: pain) Qty: 10 0RF Rx Instructions: Do not use with aleve, ibuprofen, only Tylenol if needed tamsulosin [Flomax] 0.4 mg capsule 0.4 mg PO BEDTIME Qty: 10 0RF Referrals: Rossy Chaney MD [Physician] - Marina Mcintyre NP [Primary Care Provider] - Chandana Barclay MD [Physician] - Print Language: Citizen Of [place]
[2023-06-09 15:16] VITALS: BP 118/74; PULSE 84; RESP 16; TEMP 36.2; O2SAT 98; BMI 26.2
[2023-06-09 16:42] LABS: MANUAL DIFF FLAG NO
[2023-06-09 16:47] LABS: Basophils Percent Auto 0.4 % (0-2); Eosinophils Absolute Auto 0.1 X10*3/uL (0.0-0.4); Eosinophils Percent Auto 1.2 % (0-4); Hematocrit 37.2 % (37.0-47.0); Hemoglobin 12.6 g/dl (12.0-16.0); Imm Gran Abs Auto 0.04 X10*3/uL (0.00-0.03); Imm Gran Pct Auto 0.4 % (0.0-0.4); Lymphocytes Percent Auto 31.9 % (20-40); Mean Corpuscular HGB Conc 33.9 g/dl (31.0-35.0); Mean Corpuscular Hemoglobin 30.2 pg (27.0-33.0); Mean Corpuscular Volume 89.2 fL (80.0-98.0); Mean Platelet Volume 10.8 fL (9.4-12.3); Monocytes Absolute Auto 0.6 X10*3/uL (0.1-1.2); Monocytes Percent Auto 6.3 % (2-11); Neutrophils Absolute Auto 5.6 x10*3/uL (2.0-8.3); Neutrophils Percent Auto 59.8 % (45-73); Platelet Count 244 X10*3/uL (160-400); Red Blood Count 4.17 X10*6/uL (4.20-5.50); Red Cell Distribution Width 12.1 % (11.0-16.0); White Blood Count 9.4 X10*3/uL (4.8-10.8)
[2023-06-09 16:57] LABS: Alanine Aminotransferase 11 U/L (0-31); Albumin Level 3.7 g/dL (3.5-5.0); Alkaline Phosphatase 89 U/L (39-117); Anion Gap 10 (12-20); Aspartate Amino Transferase 16 U/L (5-31); Bilirubin Total 0.3 mg/dL (0.0-1.0); Blood Urea Nitrogen 10 mg/dL (9-16); Calcium 8.7 mg/dL (8.4-10.2); Carbon Dioxide 24 mmol/L (22-29); Chloride 108 mmol/L (96-108); Creatinine Clr Calc Pharmacy 107.4; Estimated Glomerular Filt Rate > 60; Glucose Random 100 mg/dL (60-115); Lipase 31 U/L (8-78); Magnesium 1.8 mg/dL (1.6-2.6); Potassium 4.3 mmol/L (3.3-5.1); Sodium 138 mmol/L (135-145); Total Protein 7.4 g/dL (6.5-8.0)
[2023-06-09 17:16] LABS: Appearance Urine Clear; Color Urine Yellow; Glucose Urine UA Negative (Negative); Leukocyte Esterase Urine Negative (Negative); Nitrite Urine Negative (Negative); PH 5.5 (5.0-9.0); Urine Blood Negative (Negative); Urine Ketones Negative (Negative); Urine Protein Negative (Neg-Trace)
[2023-06-09 17:17] LABS: UPreg QC Valid YES; Urine Pregnancy NEGATIVE (NEGATIVE)
[2023-06-09 19:49] VITALS: BP 114/64; PULSE 66; RESP 16; TEMP 36.8; O2SAT 98
[2023-06-09] MEDS: Acetaminophen 325 MG TABLET 975 MG PO (21:19)
[2023-06-09] MEDS: Ibuprofen 400 MG TABLET PO (21:19)
[2023-06-09 21:23] VITALS: BP 103/65; PULSE 74; RESP 17; TEMP 36.7; O2SAT 98
[2023-06-09 21:37] VITALS: BP 103/65; PULSE 74; RESP 17; TEMP 36.7; O2SAT 98
== END 2023-06-09 21:37 | disposition home or self-care (01) ==
PROVIDERS: Physician Assistant; Emergency Provider Student in an Organized Health Care Education/Training Program; PCP Nurse Practitioner Primary Care
DX: R10.2 Pelvic and perineal pain (principal); M79.641 Pain in right hand; Z79.899 Other long term (current) drug therapy
CPT/HCPCS: 36415; 80053; 81003; 81025; 83690; 83735; 85025; 99283; 99284

== ENCOUNTER 2023-06-30 10:47 | Outpatient (AMB) | payer SELFPAY ==
--- NOTE | 2023-06-30 10:57 | A.OFFVIS_ITS ---
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 Patient reports 3 years ago she had a small piece of glass that went into her right thumb and she was able to remove it but now states that it hurts when she flexes her thumb. Currently is having a lot of pain when she is applying pressure to her thumb. 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 Patient presented to the ED on 06/09/2023 with a complaint of pain with right thumb flexion. Patient reports 3 years ago, in 2020, she has a small piece of glass that went into the palmar aspect of the right thumb, which she was able to be removed. While in the office today the patient reports 3 years ago, in 2020, she broke a dish and got a piece of glass in her right thumb. She states she was able to remove some of the glass, shre reports she believes there is still some left in the finger. She states she now has pain with right thumb flexion. She reports having a lot of pain when she applies pressure to the thumb. 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 Area of density over the flexor tendon proximal to the IP joint of the volar aspect of the right thumb. No surrounding erythema or drainage. No signs of infection. No ecchymosis or edema. Able to perform full finger flexion, extension, abduction, adduction, finger cross, okay sign, and thumbs up without deficit. Able to make a closed fist. Sensation intact. Capillary refill is brisk. Radial pulse intact. Assessment & Plan Assessment & Plan (1) Foreign body of thumb, right: Code(s): S60.351A - Superficial foreign body of right thumb, initial encounter Category: Medical Qualifiers: Encounter type: initial encounter Qualified Code(s): S60.351A - Superficial foreign body of right thumb, initial encounter Plan Ms. Audelia Galaviz is a 37-year-old right hand dominant female, who is Estonian speaking, presents in the office today, as a new patient, for an evaluation of right thumb pain. Patient presented to the ED on 06/09/2023 with a complaint of pain with right thumb flexion. Patient reports 3 years ago, in 2020, she has a small piece of glass that went into the palmar aspect of the right thumb, which she was able to be removed. While in the office today the patient reports 3 years ago, in 2020, she broke a dish and got a piece of glass in her right thumb. She states she was able to remove some of the glass, shre reports she believes there is still some left in the finger. She states she now has pain with right thumb flexion. She reports having a lot of pain when she applies pressure to the thumb. Patient will be referred for a CT of the right thumb for further evaluation and treatment. The patient was given my business card. Follow up will be after the CT is obtained, or sooner if needed. X-rays of the right hand which were obtained while in the office today and were reviewed by me, Louann Diaz PA-C, revealed: Negative for any foreign body, acute fracture, or dislocation. Orders: Orders XR hand RT min 3V Today M79.643 - Pain in unspecified hand CT hand RT wo IV con Today S60.351A - Superficial foreign body of right thumb, initial encounter Medications: Discontinued nitrofurantoin monohyd/m-cryst 100 mg (Macrobid) must administer with a meal/food Discontinued Reason: Patient no longer taking 100 mg PO Q12H 7 days 14 caps 0RF tramadol Discontinued Reason: Patient no longer taking 50 mg PO Q8H PRN 7 tabs 0RF pain levofloxacin Discontinued Reason: Patient no longer taking 500 mg PO DAILY 10 tabs 0RF tamsulosin (Flomax) Discontinued Reason: Patient no longer taking 0.4 mg PO BEDTIME 10 caps 0RF ketorolac Do not use with aleve, ibuprofen, only Tylenol if needed Discontinued Reason: Patient no longer taking 10 mg PO TID PRN 10 tabs 0RF pain Patient Instructions: Scribed by Reny Romano spanish medical interpreter, for Louann Diaz PA-C on 06/30/2023 at 11:09 am, EST. Coding Level of Care Code New Pt Level 4 (40633) Diagnoses Foreign body of right thumb, initial encounter S60.351A Encounter type: initial encounter
== END 2023-06-30 11:09 | disposition home or self-care (01) ==
PROVIDERS: PCP Nurse Practitioner Primary Care; Visit Provider Physician Assistant
DX: S60.351A Superficial foreign body of right thumb, initial encounter (principal)
CPT/HCPCS: 99204

== ENCOUNTER 2023-06-30 14:34 | Outpatient (REF) | payer MEDICAID, OTHER, SELFPAY ==
--- NOTE | ~2023-06-30 | XR_ITS ---
EXAMINATION: XR HAND, RIGHT CLINICAL INFORMATION: Pain in the hand. COMPARISON: None available. TECHNIQUE: PA, lateral, and oblique views of the right hand. FINDINGS: The bones and soft tissues are normal. No fracture. Alignment is anatomic. Joint spaces are maintained. No erosions or soft tissue calcifications. XR/XR hand RT min 3V IMPRESSION: Normal right hand.
== END 2023-06-30 14:35 | disposition home or self-care (01) ==
LOC: HO.HOSX 14:34
PROVIDERS: Visit Provider Physician Assistant
DX: M79.644 Pain in right finger(s) (principal); S60.351D Superficial foreign body of right thumb, subsequent encounter; W25.XXXD Contact with sharp glass, subsequent encounter; W45.8XXD Other foreign body or object entering through skin, subsequent encounter
CPT/HCPCS: 73130; 99202

== ENCOUNTER 2023-08-07 09:36 | Outpatient (REF) | payer MEDICAID, OTHER, SELFPAY ==
--- NOTE | ~2023-08-07 | CT_ITS ---
EXAMINATION: CT HAND WITHOUT CONTRAST, RIGHT CLINICAL INFORMATION: Question foreign body volar to the right thumb. Superficial foreign body. COMPARISON: Right hand radiographs dated 06/30/2023. TECHNIQUE: Contiguous axial CT images of the right hand were obtained without contrast. Multi planar reformats were provided and reviewed. This CT examination was performed using dose optimization techniques as appropriate, variously including the following: *Automated exposure control *Adjustment of mA and/or kV according to patient size (this includes techniques or standardized protocols for targeted exams where dose is matched to indication/reason for exam; i.e. extremities or head) *Use of iterative reconstruction technique DLP: 175 mGy-cm FINDINGS: No acute fracture or dislocation. Normal carpal alignment. No joint space narrowing or marginal osteophytes. No concerning lytic or blastic osseous lesion. The visualized muscles and tendons are grossly intact; however, evaluation is limited on CT examination. No radiopaque foreign body. No soft tissue mass or fluid collection. Minimal subcutaneous stranding along the volar aspect of the thumb without organized fluid collection. CT/CT hand RT wo IV con IMPRESSION: 1. No radiopaque foreign body. 2. Minimal subcutaneous stranding along the volar aspect of the thumb without organized fluid collection.
== END 2023-08-07 09:37 | disposition home or self-care (01) ==
LOC: HO.CT 09:36
PROVIDERS: PCP Nurse Practitioner Primary Care; Visit Provider Physician Assistant
DX: S60.351A Superficial foreign body of right thumb, initial encounter (principal)
CPT/HCPCS: 73200

== ENCOUNTER 2023-09-26 10:45 | Outpatient (REF) | payer MEDICAID, OTHER, SELFPAY ==
--- NOTE | ~2023-09-26 | US_ITS ---
EXAMINATION: US PELVIS COMPLETE CLINICAL INFORMATION: Left pelvic pain; last menstrual period was on 09/11/2023. COMPARISON: Pelvic ultrasound dated 04/24/2021. TECHNIQUE: Transabdominal and transvaginal imaging were performed. FINDINGS: The uterus is of normal size and echogenicity, measuring 8.3 x 4.5 x 6.2 cm. The uterus is anteverted. A regular homogeneous endometrium is identified measuring 0.6 cm. Multiple nabothian cysts are seen within the cervix, some with calcifications FIBROIDS: There are 2 fibroids seen. 1. Location: Rightward lower body, subserosal. Size: 1.3 x 1.3 x 1.5 cm. Fibroid characteristics: 2. Location: Posterior cervix, myometrial. Size: 2.3 x 1.8 x 1.8 cm. Fibroid characteristics: Hypoechoic Both ovaries are of normal size and echogenicity. The right ovary measures 3.8 x 2.5 x 3.1 cm for a volume of 15.4 mL. The right ovary contains a 1.6 cm benign, simple physiologic follicle. This requires no imaging follow-up. The left ovary measures 3.2 x 1.6 x 2.3 cm for a volume of 6.2 mL. The left ovary contains a 2.0 cm benign, simple physiologic follicle. This requires no imaging follow-up. There is a small amount nonspecific free fluid in the cul-de-sac. No adnexal mass is seen. US/US pelvic and transvaginal IMPRESSION: 1. There are uterine and cervical fibroids, as detailed. 2. Nabothian cysts are seen within the cervix. 3. There is a small amount of nonspecific free fluid in the cul-de-sac. Electronically signed by: Carlos Manzanares MD 10/13/2023 10:48 PM EDT
== END 2023-09-26 10:46 | disposition home or self-care (01) ==
LOC: HO.US 10:45
PROVIDERS: PCP Nurse Practitioner Primary Care; Visit Provider Emergency Medicine
DX: R10.30 Lower abdominal pain, unspecified (principal)
CPT/HCPCS: 76830; 76856

== ENCOUNTER 2023-10-18 21:18 | Emergency (ER) | payer MEDICAID, OTHER, SELFPAY ==
--- NOTE | ~2023-10-18 | CT_ITS ---
EXAMINATION: CT ABDOMEN AND PELVIS WITHOUT CONTRAST CLINICAL INFORMATION: Reason for Exam llq pain etiology?? COMPARISON: 08/09/2022 TECHNIQUE: Multidetector volumetric imaging was performed from the superior aspect of the liver through the pubic symphysis. Sagittal and coronal reformatted images were obtained on the technologist's workstation. This CT examination was performed using dose optimization techniques as appropriate, variously including the following: *Automated exposure control *Adjustment of mA and/or kV according to patient size (this includes techniques or standardized protocols for targeted exams where dose is matched to indication/reason for exam; i.e. extremities or head) *Use of iterative reconstruction technique DLP: 604 mGy-cm FINDINGS: LUNG BASES: The visualized lung bases are unremarkable. LIVER, GALLBLADDER, AND BILIARY TREE: The liver is normal in size, shape, and attenuation. No focal hepatic lesion or biliary ductal dilatation is identified on this noncontrast exam. Patient is status post cholecystectomy. PANCREAS: Unremarkable. SPLEEN: Unremarkable. ADRENAL GLANDS: Unremarkable. KIDNEYS AND URETERS: No hydronephrosis or obstructing calculus bilaterally. There are numerous scattered bilateral renal calculi measuring up to 4 mm. BLADDER: Unremarkable. GASTROINTESTINAL TRACT: No evidence of bowel obstruction or significant wall thickening. The appendix is unremarkable. No free fluid or free air is seen. ABDOMINAL WALL: No significant hernia is appreciated. LYMPH NODES: Normal. VASCULAR: Unremarkable. PELVIC VISCERA: Cystic structure in the region of the right adnexa measuring up to approximately 4 cm diameter. Findings are overwhelmingly likely to represent a benign functional cyst. No followup imaging recommended. OSSEOUS STRUCTURES: Unremarkable. CT/CT abdomen pelvis wo IV con IMPRESSION: No acute findings identified in the abdomen/pelvis. Numerous scattered bilateral renal calculi without hydronephrosis. Electronically signed by: Jorge Vaughan MD 10/19/2023 01:37 AM EDT
[2023-10-18 21:36] VITALS: BP 116/79; PULSE 84; RESP 16; TEMP 36.8; O2SAT 95; BMI 24.3
[2023-10-18 21:50] LABS: MANUAL DIFF FLAG NO
[2023-10-18 21:52] LABS: Basophils Percent Auto 0.4 % (0-2); Eosinophils Absolute Auto 0.1 X10*3/uL (0.0-0.4); Eosinophils Percent Auto 1.1 % (0-4); Hematocrit 36.9 % (37.0-47.0); Hemoglobin 12.5 g/dl (12.0-16.0); Imm Gran Abs Auto 0.03 X10*3/uL (0.00-0.03); Imm Gran Pct Auto 0.3 % (0.0-0.4); Lymphocytes Absolute Auto 3.2 X10*3/uL (1.2-4.9); Mean Corpuscular HGB Conc 33.9 g/dl (31.0-35.0); Mean Corpuscular Hemoglobin 30.4 pg (27.0-33.0); Mean Corpuscular Volume 89.8 fL (80.0-98.0); Mean Platelet Volume 10.3 fL (9.4-12.3); Monocytes Absolute Auto 0.8 X10*3/uL (0.1-1.2); Monocytes Percent Auto 7.1 % (2-11); Neutrophils Absolute Auto 6.5 x10*3/uL (2.0-8.3); Neutrophils Percent Auto 61.1 % (45-73); Platelet Count 266 X10*3/uL (160-400); Red Blood Count 4.11 X10*6/uL (4.20-5.50); Red Cell Distribution Width 12.2 % (11.0-16.0); White Blood Count 10.7 X10*3/uL (4.8-10.8)
[2023-10-18 22:00] VITALS: BP 109/68; PULSE 76; RESP 16; TEMP 36.4; O2SAT 98
[2023-10-18 22:06] LABS: Alanine Aminotransferase 13 U/L (0-31); Albumin Level 3.9 g/dL (3.5-5.0); Alkaline Phosphatase 90 U/L (39-117); Anion Gap 12 (12-20); Aspartate Amino Transferase 16 U/L (5-31); Bilirubin Total 0.2 mg/dL (0.0-1.0); Blood Urea Nitrogen 13 mg/dL (9-16); Calcium 9.2 mg/dL (8.4-10.2); Carbon Dioxide 24 mmol/L (22-29); Chloride 106 mmol/L (96-108); Creatinine Clr Calc Pharmacy 89.4; Estimated Glomerular Filt Rate > 60; Glucose Random 112 mg/dL (60-115); Potassium 3.2 mmol/L (3.3-5.1); Sodium 139 mmol/L (135-145); Total Protein 7.6 g/dL (6.5-8.0)
[2023-10-18 22:11] LABS: Appearance Urine Clear; Color Urine Yellow; Glucose Urine UA Negative (Negative); Leukocyte Esterase Urine Trace (Negative); Nitrite Urine Negative (Negative); UMIC TRIGGER UACC YES; Urine Blood Negative (Negative); Urine Ketones Negative (Negative); Urine Protein Negative (Neg-Trace)
[2023-10-18 22:13] LABS: UPreg QC Valid YES; Urine Pregnancy NEGATIVE (NEGATIVE)
[2023-10-18 22:16] LABS: Bacteria Urine None Seen (None Seen); Hyaline Casts Urine 0-2 /LPF (0-2); RBC Urine 0-2 /HPF (0-2); WBC Urine 0-5 /HPF (0-5)
--- NOTE | 2023-10-18 22:26 | ED_ITS ---
HPI - Abdominal Pain General Chief Complaint: Abdominal Pain Stated Complaint: left side pain Time Seen by Provider: 10/18/23 22:21 Source: patient Mode of arrival: ambulatory Limitations: no limitations History of Present Illness ED Provider: yael FAIR narrative: Patient with chronic lower abdominal pain with history of kidney stone in the past had ultrasound done last week showed fibroids comes here for pain in the left lower abdomen for last few weeks got worse in last few days is constant pain now associated with nausea no fever no urinary symptoms except for the urge to urinate Related Data Previous Rx's ?Medication ?Instructions ?Recorded ibuprofen 600 mg tablet 600 mg PO TID PRN pain #14 tabs 07/28/20 dicyclomine 20 mg tablet 20 mg PO TID PRN abdominal pain 10/19/23 #20 tabs Allergies Allergy/AdvReac Type Severity Reaction Status Date / Time No Known Allergies Allergy Verified 10/18/23 21:37 Review of Systems Review of Systems Yes all other systems are reviewed and are negative [facility] Past Medical History Surgical History History of cholecystectomy Social History Social History Alcohol intake: never Patient Tobacco Use Status: Never used Tobacco Smoked in Last 30 Days: No Advance Directives: No Advance Directives Information Provided: No Do you have a plan to hurt others: No Plan Patient : No Current occupational status: employed 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 Oriented X3. No acute distress. Eyes: No pallor ENT: Pharynx normal. Oral Mucosa moist Neck: Normal inspection. Neck supple. CVS: Normal heart rate and rhythm. Pulses normal. Respiratory: No respiratory distress. Equal air entry bilateral, no wheezing/rales/rhonchi Abdomen: Soft and tenderness in left lower abdomen no guarding or rebound tenderness. Bowel sounds are present, no mass palpable, no CVA tenderness Skin: Skin warm and dry. Normal skin color. Normal skin turgor. Extremities: No lower extremity edema. No calf tenderness Neuro: Oriented X 3. No motor deficit. Medical Decision Making Medical Decision Making [facility] Narrative: Patient is stable labs with left lower quadrant pain etiology not very clear patient does have history of kidney stone will get CT scan of the abdomen pelvis to rule out kidney stone Patient's CT scan is negative likely patient has chronic pelvic pain previous ultrasounds were negative labs stable will prescribe dicyclomine Lab Data [facility] Lab Attestation statement: I reviewed the patient's lab results. 10/18/23 21:47 10/18/23 21:47 Labs: Lab Results 10/18/23 10/18/23 10/18/23 Range/Units 21:41 21:47 22:03 WBC 10.7 (4.8-10.8) X10*3/uL RBC 4.11 L (4.20-5.50) X10*6/uL Hgb 12.5 (12.0-16.0) g/dl Hct 36.9 L (37.0-47.0) % MCV 89.8 (80.0-98.0) fL MCH 30.4 (27.0-33.0) pg MCHC 33.9 (31.0-35.0) g/dl RDW 12.2 (11.0-16.0) % Plt Count 266 (160-400) X10*3/uL MPV 10.3 (9.4-12.3) fL Immature Gran % (Auto) 0.3 (0.0-0.4) % Neut % (Auto) 61.1 (45-73) % Lymph % (Auto) 30.0 (20-40) % [place] % (Auto) 7.1 (2-11) % Eos % (Auto) 1.1 (0-4) % Baso % (Auto) 0.4 (0-2) % Lymph # (Auto) 3.2 (1.2-4.9) X10*3/uL [place] # (Auto) 0.8 (0.1-1.2) X10*3/uL Eos # (Auto) 0.1 (0.0-0.4) X10*3/uL Baso # (Auto) 0.0 (0.0-0.2) X10*3/uL Abs Immat Gran (auto) 0.03 (0.00-0.03) X10*3/uL Absolute Neuts (auto) 6.5 (2.0-8.3) x10*3/uL Absolute Nucleated RBC 0.000 (0.0-0.012) X10*3/uL Nucleated RBC % (auto) 0.0 (0.0-0.2) /100WBC Sodium 139 (135-145) mmol/L Potassium 3.2 L D (3.3-5.1) mmol/L Chloride 106 (96-108) mmol/L Carbon Dioxide 24 (22-29) mmol/L Anion Gap 12 (12-20) BUN 13 (9-16) mg/dL Creatinine 0.75 (0.5-1.4) mg/dL Estim Creat Clear Calc 89.4 Estimated GFR > 60 Random Glucose 112 (60-115) mg/dL Calcium 9.2 (8.4-10.2) mg/dL Total Bilirubin 0.2 (0.0-1.0) mg/dL AST 16 (5-31) U/L ALT 13 (0-31) U/L Alkaline Phosphatase 90 (39-117) U/L Total Protein 7.6 (6.5-8.0) g/dL Albumin 3.9 (3.5-5.0) g/dL Urine Color Yellow Urine Appearance Clear Urine pH 6.0 (5.0-9.0) Ur Specific Prentiss 1.010 (1.005-1.025) Urine Protein Negative (Neg-Trace) mg/dL Urine Glucose (UA) Negative (Negative) mg/dL Urine Ketones Negative (Negative) mg/dL Urine Blood Negative (Negative) Urine Nitrite Negative (Negative) Ur Leukocyte Esterase Trace H (Negative) Urine RBC 0-2 (0-2) /HPF Urine WBC 0-5 (0-5) /HPF Ur Squamous Epith Cells 3-5 (0-2) /HPF Urine Bacteria None Seen (None Seen) Hyaline Casts 0-2 (0-2) /LPF Urine Test NEGATIVE (NEGATIVE) Independent Interpretation I performed an independent interpretation of an: CT Scan Radiology Impression Discussion of test interpretation with radiology: I have reviewed the radiologist's reading. Radiologist Impression: [id number] [place] [address] CT Scan Report Signed Patient: Denisha Benavidez MR#: [id number] : 1985 Acct:[id number] Age/Sex: 37 / F ADM Date: 10/18/23 Loc: HO.ED Attending Dr: Ordering Physician: Remy Machado MD Date of Service: 10/18/23 Procedure(s): CT abdomen pelvis wo IV con Accession Number(s): [id number] cc: JUAN M ALY NP; Remy Machado MD~ EXAMINATION: CT ABDOMEN AND PELVIS WITHOUT CONTRAST CLINICAL INFORMATION: Reason for Exam llq pain etiology?? COMPARISON: 08/09/2022 TECHNIQUE: Multidetector volumetric imaging was performed from the superior aspect of the liver through the pubic symphysis. Sagittal and coronal reformatted images were obtained on the technologist's workstation. This CT examination was performed using dose optimization techniques as appropriate, variously including the following: *Automated exposure control *Adjustment of mA and/or kV according to patient size (this includes techniques or standardized protocols for targeted exams where dose is matched to indication/reason for exam; i.e. extremities or head) *Use of iterative reconstruction technique DLP: 604 mGy-cm FINDINGS: LUNG BASES: The visualized lung bases are unremarkable. LIVER, GALLBLADDER, AND BILIARY TREE: The liver is normal in size, shape, and attenuation. No focal hepatic lesion or biliary ductal dilatation is identified on this noncontrast exam. Patient is status post cholecystectomy. PANCREAS: Unremarkable. SPLEEN: Unremarkable. ADRENAL GLANDS: Unremarkable. KIDNEYS AND URETERS: No hydronephrosis or obstructing calculus bilaterally. There are numerous scattered bilateral renal calculi measuring up to 4 mm. BLADDER: Unremarkable. GASTROINTESTINAL TRACT: No evidence of bowel obstruction or significant wall thickening. The appendix is unremarkable. No free fluid or free air is seen. ABDOMINAL WALL: No significant hernia is appreciated. LYMPH NODES: Normal. VASCULAR: Unremarkable. PELVIC VISCERA: Cystic structure in the region of the right adnexa measuring up to approximately 4 cm diameter. Findings are overwhelmingly likely to represent a benign functional cyst. No followup imaging recommended. OSSEOUS STRUCTURES: Unremarkable. CT/CT abdomen pelvis wo IV con IMPRESSION: No acute findings identified in the abdomen/pelvis. Numerous scattered bilateral renal calculi without hydronephrosis. Electronically signed by: Jorge Vaughan MD 10/19/2023 01:37 AM EDT Medications Administered Discontinued Medications Generic Name Dose Route Start Last Admin Trade Name Freq PRN Reason Stop Dose Admin Ketorolac Tromethamine 60 mg 10/18/23 23:08 10/18/23 23:24 Ketorolac Tromethamine 60 Mg/2 Ml Vial IM 10/18/23 23:09 60 mg ONCE ONE Administration Ondansetron HCl 4 mg 10/18/23 23:09 10/18/23 23:25 Ondansetron Odt 4 Mg Tab.Rapdis TRANSLINGU 10/18/23 23:10 4 mg ONCE ONE Administration Discharge Plan Discharge Clinical Impression: Abdominal pain Patient Disposition: Home, Self-Care Instructions: Chronic Abdominal Pain (ED) Additional Instructions: Take pain medication as prescribed Your CT scan of the abdomen is negative for acute Follow with your PCP Prescriptions: New dicyclomine 20 mg tablet 20 mg PO TID PRN (Reason: abdominal pain) Qty: 20 0RF No Action ibuprofen 600 mg tablet 600 mg PO TID PRN (Reason: pain) Qty: 14 0RF Interventions: ED Discharge Assessment Last Done: 10/19/23 01:58 Discharge Date/Time: 10/19/23 01:58 Print Language: Slovak
[2023-10-18] MEDS: Ketorolac Tromethamine 60 MG/2 ML VIAL IM (23:24)
[2023-10-18] MEDS: Ondansetron ODT 4 MG TAB.RAPDIS TRANSLINGU (23:25)
[2023-10-19 01:58] VITALS: BP 102/71; PULSE 79; RESP 17; TEMP 36.2; O2SAT 97
== END 2023-10-19 01:58 | disposition home or self-care (01) ==
PROVIDERS: Emergency Provider Internal Medicine; PCP Nurse Practitioner Primary Care
DX: R10.32 Left lower quadrant pain (principal); Z90.49 Acquired absence of other specified parts of digestive tract
CPT/HCPCS: 36415; 74176; 80053; 81001; 81025; 85025; 96372; 99284; J1885

== ENCOUNTER 2023-12-30 15:25 | Outpatient (AMB) | payer SELFPAY ==
--- NOTE | 2023-12-30 15:30 | MHC.OFFVIS ---
Intake Visit Reasons: CT review rt hand Intake Note: Denisha is a 38 year old female who presents today for a CT scan review of her right hand. Patient reports she is still having pain at the base of the thumb. However her wrist is doing well. Allergies No Known Allergies Allergy (Verified 12/30/23 15:33) HPI HPI CT review rt hand: Details: 38-year-old right-hand dominant female who presents in the office today for follow-up of right thumb pain. I last saw the patient in the office on 06/30/[address] of the right hand was ordered for further evaluation and treatment. While in the office today, the patient reports persisting pain at the base of the right thumb. She mentions that she is doing well with her right wrist. 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 Review of Systems Const All systems reviewed & are unremarkable except as noted in HPI and below Physical Exam Const General: cooperative, healthy appearing and no acute distress Orientation/consciousness: patient oriented x3 Resp Effort & Inspection: normal respiratory effort and able to speak in complete sentences Cardio Rate: regular rate Peripheral pulses: Peripheral pulses 2+ throughout GI Palpation (GI): Soft to palpation Skin General skin exam: no rashes or lesions noted Lesions: no lesions Rashes: no rashes Neuro General: patient oriented x3 Extrem Other: Right hand: Normal to inspection. Small palpable mobile ball over the flexor tendon proximal to the IP joint of the volar aspect of the right thumb. No surrounding erythema or drainage. No signs of infection. No ecchymosis or edema. Able to perform full finger flexion, extension, abduction, adduction, finger cross, okay sign, and thumbs up without deficit. Able to make a closed fist. Sensation intact. Capillary refill is brisk. Radial pulse intact. Assessment & Plan Assessment & Plan (1) Retinacular ganglion, volar (VRG): Code(s): M67.40 - Ganglion, unspecified site Category: Medical Plan Ms. Audelia Galaviz is a 38-year-old right-hand dominant female who presents in the office today for follow-up of right thumb pain. I last saw the patient in the office on 06/30/[address] of the right hand was ordered for further evaluation and treatment. While in the office today, the patient reports persisting pain at the base of the right thumb. She mentions that she is doing well with her right wrist. I suspect that the small mass on the volar aspect of the thumb is likely a retinacular cyst. I would like her to get evaluated with Dr. Chaney for further evaluation and treatment. Follow-up will be with Dr. Chanye, or sooner if needed with me. CT of the right hand, obtained on 08/07/23, revealed: 1. No radiopaque foreign body. 2. Minimal subcutaneous stranding along the volar aspect of the thumb without organized fluid collection. Patient Instructions: Scribed by Ele Manrique, medical education specialist, for Louann Joe [facility] on 12/30/2023 at 3:58 pm EST. Coding Level of Care Code Est Pt Level 3 (58662) Diagnoses Retinacular ganglion, volar (VRG) M67.40
== END 2023-12-30 15:47 | disposition home or self-care (01) ==
PROVIDERS: PCP Nurse Practitioner Primary Care; Visit Provider Physician Assistant
DX: M67.40 Ganglion, unspecified site (principal)
CPT/HCPCS: 99213

== ENCOUNTER → 2023-12-30 15:25 | Outpatient (BNVA) | payer MEDICAID, OTHER, SELFPAY | PROVIDERS: PCP Nurse Practitioner Primary Care; Visit Provider Physician Assistant | DX: M67.40 Ganglion, unspecified site (principal) | CPT/HCPCS: 99212 ==

== ENCOUNTER 2024-02-10 10:28 | Outpatient (AMB) | payer SELFPAY ==
--- NOTE | 2024-02-10 11:39 | MHC.OFFVIS ---
Vital Signs 02/10/24 11:43 Height 5 ft 2 in Weight 132 lb BMI 24.1 Handedness Right Intake Visit Reasons: OV - right thumb ganglion Intake Note: Denisha 38 yr old female presents today for a follow up visit for her persisting pain at the base of the right thumb. Last seen with Rhiannon Lew who suspects patient has a small mass on the volar aspect of the thumb and would like patient to be evaluated with Dr. Chaney for further evaluation and treatment. Patient reports that the lump she had has gone down, however she still feels it when she applies pressure to the volar aspect of the thumb. Allergies No Known Allergies Allergy (Verified 02/10/24 11:43) HPI HPI OV - right thumb ganglion: Details: The patient sustained a laceration from a piece of glass to the volar ulnar aspect of her right thumb. She was seen by Louann joya on 06/30/2023 for this issue. She continues to have tenderness and pain in a focal area over the volar ulnar aspect of the thumb just proximal to the IP flexion crease, particularly when she grabs tools. 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 She is interested to see if we might be able to remove the area that is painful. 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 She showed me a small bump on the volar ulnar aspect of her right thumb just proximal to the IP flexion crease where she had a laceration from glass. There is a small bump measuring perhaps 2 mm x 4 mm, and where she reproducibly has sharp pain when I pass over it with my finger nail. It is certainly possible that there is a small piece of glass in there, versus a scar. Full active flexion and extension of the thumb without pain. No pain with resisted flexion. Radial digital nerve ulnar digital nerve intact to the tip of the thumb. Good cap refill. She can make a fist and extend all of her digits without difficulty. No open wounds today Assessment & Plan Assessment & Plan (1) Foreign body of thumb, right: Code(s): S60.351A - Superficial foreign body of right thumb, initial encounter Category: Medical Qualifiers: Encounter type: initial encounter Qualified Code(s): S60.351A - Superficial foreign body of right thumb, initial encounter (2) Subcutaneous mass of right thumb: Code(s): R22.31 - Localized swelling, mass and lump, right upper limb Category: Medical Plan Assessment and plan: 1. Right thumb foreign body, versus mass or scar tissue From a laceration with glass Just proximal to the IP flexion crease on the volar ulnar side of the digit Pain/tenderness reproducible to a finite area with a small mass. I educated her about this condition We discussed operative and non operative treatment options including the risks and benefits and she wishes to proceed with surgery. The risks and benefits of operative treatment were discussed with the patient and the patient wishes to proceed with surgery. These risks include, but are not limited to risk of damage to blood vessels, nerves, tendons, infection, recurrence, incomplete relief of preoperative symptoms, persistent pain, possible need for further surgery and the risks associated with regional blocks and anesthesia. The plan is to take the patient to the operating room sometime in the next few weeks for the following procedures: 1. Right thumb removal of volar mass/foreign body under local 2. [ ] All of the preoperative paperwork including the consent was filled out today. All the patient's questions were answered. The patient understands that they will be contacted by our neurosurgery spine physician soon to schedule this procedure Coding Level of Care Code Est Pt Level 4 (67425) Diagnoses Foreign body of right thumb, initial encounter S60.351A Encounter type: initial encounter Subcutaneous mass of right thumb R22.31
[2024-02-10 11:43] VITALS: BMI 24.1
== END 2024-02-10 12:28 | disposition home or self-care (01) ==
PROVIDERS: PCP Nurse Practitioner Primary Care; Visit Provider Orthopaedic Surgery
DX: R22.31 Localized swelling, mass and lump, right upper limb (principal); S60.351A Superficial foreign body of right thumb, initial encounter
CPT/HCPCS: 99214

== ENCOUNTER → 2024-02-10 10:28 | Outpatient (BNVA) | payer MEDICAID, SELFPAY | PROVIDERS: PCP Nurse Practitioner Primary Care; Visit Provider Orthopaedic Surgery | DX: S60.351D Superficial foreign body of right thumb, subsequent encounter (principal); R22.31 Localized swelling, mass and lump, right upper limb | CPT/HCPCS: 99212 ==

== ENCOUNTER 2025-01-25 16:08 | Outpatient (REF) | payer SELFPAY ==
[2025-01-25 16:45] LABS: Appearance Urine Clear; Glucose Urine UA Negative (Negative); PH 6.0 (5.0-9.0); Specific Gravity - Urine 1.020 (1.005-1.025)
--- OUTSIDE RECORDS SUMMARY | 2025-01-25 20:06 | XMS_ITS | Encounter Summary ---
Author Organization [facility] Address [address] [place] [address] Care Team Providers Care Gunite Nozzle Operator Name Role Phone Marina Mcintyre Primary Care Provider [phone] Encounter Details Date Type Department Care Team (Latest Contact Info) Description 09/19/2023 Transcribe Orders [facility] Physician Referral Services [address] [place] [address] [address] [place] [address] External hemorrhoid (Primary Dx); Pain associated with defecation Social History Tobacco Use Types Packs/Day Years Used Date Smoking Tobacco: Never Assessed Hunger Vital Sign Answer Date Recorded Within the past 12 months, y ou worried that your food would run out before you got the money to buy more. Never true 03/28/19 24 Within the past 12 months, t he food you bought just didn't last and you didn't have money to get more. Never true 03/28/2023 Comments No Sex and Gender Information Value Date Recorded Sex Assigned at Female 01/21/2023 9:12 AM EST Legal Sex Female 9:09 AM EST Gender Identity Not on file Sexual Orientation Not on file documented as of this encounter Plan of Treatment Not on file documented as of this encounter Visit Diagnoses Diagnosis External hemorrhoid- Primary External hemorrhoids without mention of complication Pain associated with defecation documented in this encounter Care Teams Gunite Nozzle Operator Relationship Specialty Start Date End Date Marina Mcintyre [address] [place] [address] PCP - General 01/21/23 documented as of this encounter
--- OUTSIDE RECORDS SUMMARY | 2025-01-25 20:06 | XMS_ITS | Encounter Summary ---
Author Organization [facility] Address [address] [place] [id number] Phone Care Team Providers Care Benefits Consultant Name Role Phone Pcp, Unknown Primary Care Provider Unavailabl e Encounter Details Date Type Department Care Team (Late st Contact Info) Description 02/18/2020 Procedure Pass [facility], Ct Scan - [address] [address] Social History Tobacco Use Types Packs/Day Years Used Date Smoking Tobacco: Never Smokeless Tobacco: Never Alcohol Use Standard Drinks/Week Comments Never 0 (1 standard drink = 0.6 oz pur e alcohol) Comments No Sex and Gender Information Value Date Recorded Sex Assigned at Female 07/25/2019 9:51 AM EDT Legal Sex Female 9:23 AM EDT Gender Identity Female 07/25/2019 9:51 AM EDT Sexual Orientation Not on file documented as of this encounter Functional Status * Calculated C-SSRS Risk Score (Lifetime/Recent) Answer Date of Assessment Author No Risk Indicated 02/18/2020 7:28 AM Jose Sena, HERSON * [place] Suicide Severity Rating Scale (Screener/Recent Self-Report) Question Answer Date of Assessment Author 1. Wish to be (Past 1 Month) No 02/18/2020 7:28 AM Jose Cazares, HERSON 2. Non-Specific Active Suicidal Thoughts (Past 1 Month) No 02/18/2020 7:28 AM Jose Cazares, HERSON 3. Active Suicidal Ideation with any Methods (Not Plan) Without Intent to Act (Past 1 Month) No 02/18/2020 7:28 AM Jose Cazares, HERSON 4. Active Suicidal Ideation with Some Intent to Act, Without Specific Plan (Past 1 Month) No 02/18/2020 7:28 AM Jose Cazaers, HERSON 5. Active Suicidal Ideation with Specific Plan and Intent (Past 1 Month) No 02/18/2020 7:28 AM Jose Cazares, HERSON 6. Suicidal Behavior (Lifetime) No 02/18/2020 7:28 AM Jose Cazares, HERSON documented as of this encounter Plan of Treatment Not on file documented as of this encounter Visit Diagnoses Not on filedocumented in this encounter Care Teams Benefits Consultant Relationship Specialty Start Date End Date Pcp, Unknown PCP - General 02/18/20 documented as of this encounter Additional Source Comments The information contained in this document represents components of the legal health record. It is not the complete legal health record.[facility]
--- OUTSIDE RECORDS SUMMARY | 2025-01-25 20:06 | XMS_ITS | Clinical Summary ---
Author Organization [facility] Address [address] [facility] [address] [place] [id number] Phone Care Team Providers Care Cold Press Loader Name Role Phone Pcp, Unknown Primary Care Provider Unavailabl e Allergies No known active allergies Medications No known medications Social History Tobacco Use Types Packs/Day Years Used Date Smoking Tobacco: Never Smokeless Tobacco: Never Alcohol Use Standard Drinks/Week Comments Never 0 (1 standard drink = 0.6 oz pur e alcohol) Education Answer Date Recorded Are you interested in more education? Not on marck e 06/07/2022 Are you concerned about learning? Not on file 06/07/2022 No 06/07/2022 No 06/07/2022 Digital Access Answer Date Recorded No 07/09/2022 No 07/09/2022 Reliable internet access at home? Not on file 07/09/2022 Device with a working camera? Not on file Comments No Sex and Gender Information Value Date Recorded Sex Assigned at Female 07/25/2019 9:51 AM EDT Legal Sex Female 9:23 AM EDT Gender Identity Female 07/25/2019 9:51 AM EDT Sexual Orientation Not on file Last Filed Vital Signs Vital Sign Reading Time Taken Comments Blood Pressure 110/70 02/18/2020 11:40 AM EST Pulse 88 02/18/2020 11:40 AM EST Temperature 36.7 C (98.1 F) 02/18/2020 11:40 AM EST Respiratory Rate 30 02/18/2020 11:40 AM EST Oxygen Saturation 98% 02/18/2020 11:40 AM EST Inhaled Oxygen Concentration - - Weight 70.3 kg (155 lb) 02/18/2020 7:26 AM EST Height 152.4 cm (5') 07/25/2019 9:47 AM EDT Body Mass Index 30.27 07/25/2019 9:47 AM EDT Plan of Treatment Not on file Medical Devices Not on file Insurance [employer] [facility] F[facility] [employer] SAF[employer] NET FULL HEALTH LIMITED [employer] [facility] FULL [address] [place], [place] [id number] LIMITED [facility] SAFETY NET FULL [employer] SAF[employer]Y NET FULL Member Subscriber Plan / Payer (Ef fective 2019-Present) Name:Denisha Benavidez Relation to Subscriber:Self Name:Denisha Benavidze Payer ID:Not on file Group ID:Not on file Type:Medicaid Address: [place] [id number] [employer] HEALTH SAF[employer]Y NET FULL [facility] S[facility] NET FULL [employer] LIMITED HEALTH SAFETY NET FULL [facility] LIMITED HEALTH SAFETY NET FULL Care Teams Cold Press Loader Relationship Specialty Start Date End Date Pcp, Unknown PCP - General 02/18/20 Additional Source Comments The information contained in this document represents components of the legal health record. It is not the complete legal health record.[facility]
--- OUTSIDE RECORDS SUMMARY | 2025-01-25 20:06 | XMS_ITS | Clinical Summary ---
Author Organization [facility] Address [address] [place] [address] Care Team Providers Care Paedodontist Name Role Phone Marina Mcintyre Primary Care Provider [phone] Allergies No known active allergies Medications dicyclomine (BENTYL) 20 mg tablet Take 20 mg by mouth 3 times a day as needed. 10/19/2023 Active levonorgestreL (PLAN B ONE-STEP) tablet SMARTSI Tablet(s) By Mouth Once 10/20/2023 Active norethindrone-e. estradioL-iron (JUNEL FE 03/01) 1 mg-20 mcg (21)/75 mg (7) per tablet Take 1 tablet by mouth once a day. 28 tablet 12 03/24/2024 Active Active Problems Problem Noted Date Diagnosed Date Pelvic pain 09/09/2023 Other hemorrhoids 02/19/2023 Migraine without aura and wi thout status migrainosus, not intractable 05/30/2022 Chronic neck pain 05/30/2022 Resolved Problems Problem Noted Date Diagnosed Date Resolved Date Calcium kidney stone 09/09/2023 025 Social History Tobacco Use Types Packs/Day Years Used Date Smoking Tobacco: Never Smokeless Tobacco: Never Hunger Vital Sign Answer Date Recorded Within [...] on file Sexual Orientation Not on file Last Filed Vital Signs Vital Sign Reading Time Taken Comments Blood Pressure 102/58 03/24/2024 10:50 AM EST Pulse 74 05/05/2023 3:41 PM EDT Temperature 36.4 C (97.5 F) 03/28/2023 9:24 AM EST Respiratory Rate 16 03/28/2023 9:28 AM EST Oxygen Saturation 98% 03/28/2023 9:28 AM EST Inhaled Oxygen Concentration - - Weight 68.9 kg (152 lb) 03/24/2024 10:50 AM EST Height 154.9 cm (5' 1 ) 03/28/2023 8:20 AM EST Body Mass Index 28.72 03/28/2023 8:20 AM EST Plan of Treatment Health Maintenance Due Date Last Done Comments HPV and Pap Smear 1987 Hepatitis C Screening 1987 Varicella Vaccines (1 of 2 - 13+ 2-dose series) 12/22/2000 Hepatitis B Vaccines (3 of 3 - 19+ 3-dose series) 05/17/2021 03/22/2021, 10/03/2020 Alcohol/Substance Use Screening 02/11/2024 Depression Screening and Follow-Up 02/11/2024 Social Drivers of Health Annual Screening 02/11/2024 Influenza Vaccine (#1) 2024 COVID-19 Vaccine (1 - 2024-2 6 season) 2024 Chlamydia Screening 03/24/2025 03/24/2024 Cervical Cancer Screening 03/24/2027 Pap Smear 03/24/2027 03/24/2024 DTaP,Tdap,and Td Vaccines (2 - Td or Tdap) 03/22/2031 03/22/2021 HIV Screening Completed 09/21/2020, 09/21/2020 Pneumococcal Vaccine: Pediatric (0-5 Years) and At-Risk Patients (6-50 Years) Aged Out No longer eligible based on patient's age to complete this topic Procedures * Due to [place] state law, this organization might not be sharing negative HIV tests. Procedure Name Priority Date/Time Associated Diagnosis Comments PAP Routine 03/24/2024 12:02 PM EST Cervical cancer screening CHLAMYDIA/NEISSERIA GONORRHEA RNA Routine 03/24/2024 12:02 PM EST Routine screening for STI (sexually transmitted infection) from Last 3 Months or Most Recently Relevant to Health Maintenance Results * Due to [place] state law, this organization might not be sharing negative HIV tests. * Pap (03/24/2024 12:02 PM EST) Specimen Adequacy Satisfactory for evaluation [facility] MANUAL 5 9:17 AM EST [facility] Pathologist Cytology Interpretation Negative for intraepithelial lesion or malignancy. [facility]UAL 5 9:17 AM EST [facility] at 0917 EST Comment:This is the result o f a morphological screening test with an inherent possibility of a false negative interpretation. Air Gun Operator Statement This Pap test was examined by the [facility], [employer], [place], [place]. This Pap test was examined in accordance with the [facility] written policy, which incorporates all CLIA mandates. Current screening guidelines can be found in [place]: A Cancer Journal for Clinicians 2020;70:321-346. Current ASCCP management guidelines for abnormal Pap tests are published in the Journal Lower Genital Tract Disease Volume 2020;24:102-131. [facility]UAL 5 9:17 AM EST [facility] Clinical History Cervical Cancer Screening [facility] 5 9:17 AM EST [facility] Resulting Agency Case was signed out at [facility], Department of Pathology, [employer] 3 CLIA [id number] [facility] MANUAL 5 9:17 AM EST [facility] Report Header Gynecologic Cytology Report Case: [id number] Authorizing Provider: Christine Rosado Collected: 03/24/2024 1202 NETTA [employer]uso Ordering Location: [facility] Received: 03/24/2024 1403 [facility] First Screen: Ed Beltran Specimen: Screening ThinPrep Pap, Cervix/Endocervix 9:17 AM EST [facility] Brushing Cervix uteri structure / Unknown Non-Blood Collection / Unknown 03/24/2024 12:02 PM EST 03/24/2024 2:03 PM EST Christine [facility] PATHOLOGY/CYTO LOGY ORDERABLES Final Result Performing Organization Address City/[facility]/ZIP Co de Phone Number [facility] [address] [place] [phone], [place] * Chlamydia/Neisseria gonorrhoeae RNA (03/24/2024 12:02 PM EST) Chlamydia trachomatis RNA, TMA NOT DETECTED NOT DETECTED 03/25/2024 10:29 AM EST [facility] Neisseria Gonorrhoeae RNA, TMA NOT DETECTED NOT DETECTED 03/25/2024 10:29 AM EST [facility] Comment: The analytical performance characteristics of this assay, when used to test SurePath(TM) specimens have been determined by [employer] (RCDb). The modifications have not been cleared or approved by the FDA. This assay has been validated pursuant to the CLIA regulations and is used for clinical purposes. For additional information, please refer to https://education.BooknGo/faq/WSC775 (This link is being provided for information/ educational purposes only.) Swab Cervix uteri structure / Unknown Non-Blood Collection / Unknown 03/24/2024 12:02 PM EST 03/24/2024 1:51 PM EST Narrative [facility] - 03/25/2024 10:29 AM EST [facility] Received Date:[id number] us Christine [facility] URINE ORDERABL ES Final Result [facility] [address] [facility] [address], [place] [address], [place] [phone] [facility] [address] [facility] [address], [place] [address], [place] [phone] from Last 3 Months or Most Recently Relevant to Health Maintenance [facility] Care Teams Paedodontist Relationship Specialty Start Date End Date Marina Mcintyre [address] [place] [id number] PCP - General 01/21/23
== END 2025-01-25 16:09 | disposition home or self-care (01) ==
LOC: HO.LNP 16:08
PROVIDERS: Visit Provider Nurse Practitioner Primary Care
DX: R30.0 Dysuria (principal)
CPT/HCPCS: 81001